=== PATIENT | female | born 1955 | race Caucasian/White ===

== ENCOUNTER 2021-09-20 13:23 | Inpatient (IN) ==
[2021-09-20] MEDS ORDERED: IOPAMIDOL 100 ML BOTTLE IV ONE (13:24)
[2021-09-20 13:47] LABS: POC Calcium, Ionized 1.03 (1.16-1.32); POC Creatinine 0.7 (0.6-1.2)
--- NOTE | 2021-09-20 14:03 | Cat Scan Report ---
INDICATION: Neuro Deficit/acute stroke COMPARISON: None. TECHNIQUE: Axial noncontrast-enhanced images through the brain. Sagittally and coronally reformatted images. FINDINGS: Examination is somewhat suboptimal due to patient motion Cerebral hemispheres:Negative. No intra-axial abnormality. No intra-axial hematoma. No localized mass effect. There is cerebral atrophy with enlarged ventricles and superficial subarachnoid spaces. There is white matter abnormality consistent with periventricular small vessel ischemic change. No acute or focal intra-axial abnormality. Brainstem and cerebellum:There is cerebellar atrophy. No intra-axial abnormality. Brainstem appears negative Extra-axial:No acute hemorrhage. No subdural or epidural hematoma. No subarachnoid hemorrhage. Basilar cisterns are normal Calvarial:No calvarial fracture. No lytic lesion Temporal bones are negative. No destructive lesions Soft tissue, orbits, sinuses:Orbits and visualized facial soft tissues and paranasal sinuses are negative IMPRESSION: 1. Cerebral and cerebellar atrophy. Periventricular white matter abnormality consistent with small vessel ischemic change 2. No acute intracranial hemorrhage. 3. No focal intra-axial attenuation abnormality or localized mass effect The exam was performed using radiation dose optimization techniques including, but not limited to, automated exposure control, adjustment of the mA and/or kV according to patient size and use of iterative reconstruction technique. Interpreted and Authenticated by: Cash Cooper 09/20/21
[2021-09-20 14:17] LABS: Basophils # (Auto) 0.04 K/mcL (0.00-0.30); Basophils % (Auto) 0.4 % (0.0-2.0); Eosinophils # (Auto) 0.06 K/mcL (0.00-0.70); Eosinophils % (Auto) 0.6 % (0.0-7.0); Hematocrit 41.2 % (34.1-44.9); Hemoglobin 14.1 g/dL (11.2-15.7); Lymphocytes # (Auto) 2.62 K/mcL (1.50-4.80); Lymphocytes % (Auto) 24.7 % (15.5-49.0); Mean Cell Volume 80.9 fL (80.0-100.0); Mean Corpuscular HGB Conc 34.2 g/dL (31.0-36.0); Mean Platelet Volume 8.8 fL (7.4-10.4); Monocytes # (Auto) 0.77 K/mcL (0.10-0.90); Monocytes % (Auto) 7.3 % (1.0-12.0); Neutrophils % (Auto) 66.6 % (38.0-78.0); Platelet Count 359 K/mcL (140-440); RBC 5.09 M/mcL (3.59-5.38); Red Cell Distribution Width 15.3 % (11.5-14.5); WBC 10.6 K/mcL (4.5-11.0)
--- NOTE | 2021-09-20 14:18 | Emergency Department Note ---
Neuro HPI General Chief Complaint: Stroke Symptoms Stated Complaint: stroke symptoms Time Seen by Provider: 09/20/21 13:36 Source: patient Mode of arrival: ambulatory Limitations: altered mental status History of Present Illness HPI Narrative: 66-year-old female with history of advanced dementia and hypertension presents for acute onset right-sided facial droop that her noticed at around 10 AM this morning. Unknown last normal, but he thinks when she woke up this morning. Patient is not on blood thinners. She is not diabetic. Blood glucose is 157. Speech is disorganized, but states this is her baseline and not new for her. NIH stroke score is difficult to ascertain given her underlying dementia and difficulty participating with the exam, but she does get one-point for right-sided facial droop. EKG shows normal sinus rhythm with a rate of 87 bpm. There are no acute ST abnormalities to suggest ischemia. QTC is prolonged at 494 ms. On Anticoagulants: No Related Data Previous Rx's Medication Instructions Recorded quetiapine 50 mg tablet 100 mg PO BID 30 days #120 tabs 04/06/21 Allergies Allergy/AdvReac Type Severity Reaction Status Date / Time Amoxicillin Allergy Severe facial Verified 09/20/21 18:25 swelling latex [LATEX] Allergy Intermediate RASH Verified 09/20/21 18:25 codeine [CODEINE] Allergy Unknown DIZZY, Verified 09/20/21 18:25 HEART RACING metals AdvReac Intermediate Redness of Uncoded 07/31/21 14:35 Skin Review of Systems ROS ROS Narrative: Narrative: All systems ED: reviewed and negative except as stated. [facility] Narrative Patient History Narrative: Narrative: Medical/Surgical/Family History All Active Problems (Updated 09/20/21 @ 15:31 by Ramya Lujan PA-C) Stroke (Acute) Loose stools (Acute) Constipation (Acute) Hypokalemia (Acute) Hypertension (Chronic) History of tonsillectomy (Chronic) History of colonoscopy (Chronic) History of (Chronic) History of appendectomy (Chronic) Obesity (Chronic) Hypercholesterolemia (Chronic) Medical History (Updated 09/20/21 @ 15:31 by Ramya Lujan PA-C) Abscess of anal and rectal regions Alcohol abuse None since 1994 Allergic rhinitis 09/29/2012 Bunion 12/08/13 - Long Burn Cellulitis Dental abscess Dysphagia Edema Elevated blood-pressure reading without diagnosis of hypertension Foot pain 01/03/14 - Long Hypercholesterolemia Hypertension Hypokalemia Obesity Rash Rectal fistula Sacroiliitis Tobacco abuse Tobacco abuse - smoking Surgical History History of appendectomy History of History of colonoscopy 2006; [place] History of tonsillectomy Family History Unknown Alcohol abuse Father Cardiac arrhythmia Pacemaker Mother Malignant Neoplasm of Thyroid Gland, Onset Age: 48 Social History Smoking Status: Former smoker Alcohol Intake Frequency: does not drink Substance Use: does not use Exam Narrative Narrative: General: Alert not oriented to place or self., nontoxic appearing. Pleasant and conversant. HEENT: PERRL, EOMI, normocephalic. Moist mucous membranes. Normal facies and normal dentition. Chest: Symmetric, no pain to palpation Respiratory: Lungs clear to auscultation bilaterally. No respiratory distress. Unlabored breathing. Heart: Regular rate and rhythm, no murmurs/clicks/rubs. Abdomen: Non-tender, Non distended, normal bowel tones. No organomegaly. Extremities: Warm and well perfused. No edema. DP 2+ bilaterally. No venous stasis. Neuro: No focal deficits. Cranial nerves II-XII grossly normal. There is mild right-sided facial droop notable to the right eyebrow and the mouth. Tongue is midline. She is moving all fours spontaneously. No obvious ataxia, but this is difficult to ascertain as she is unable to participate with the exam due to her underlying dementia. NIH stroke score is estimated at 1. Skin: Warm dry, no rashes or lesions, no cyanosis. Psych: Pleasant mood and affect Heme/Lymph: No abnormal bruising General Limitations: altered mental status Course Course Course Narrative: 66-year-old female presents for strokelike symptoms Reevaluation(s) Reevaluation #1: Code stroke, obtain head CT without contrast and CTA of the head and neck I have spoken with the telestroke physician Dr. Stevenson and he is recommending against thrombolytics at this time given unknown last normal and minor disabling symptoms with underlying severe dementia. Reevaluation #2: CTA of the head and neck shows nonocclusive right internal carotid stenosis 40% common and left common carotid stenosis 50%. No other significant findings. She is noted to have brain atrophy consistent with her underlying dementia. Vital Signs Vital signs: Vital Signs Pulse Rate 105 H 09/20/21 13:33 Respiratory Rate 14 09/20/21 13:33 Blood Pressure 191/63 09/20/21 13:33 Pulse Oximetry (%) 97 09/20/21 13:33 Oxygen Delivery Method 09/20/21 13:33 Temperature 98.2 F 09/20/21 17:11 Pulse Rate 94 H 09/20/21 17:46 Respiratory Rate 23 H 09/20/21 18:42 Blood Pressure 158/91 09/20/21 18:42 Pulse Oximetry (%) 94 09/20/21 17:46 Oxygen Delivery Method 09/20/21 17:11 MDM MDM Narrative Medical decision making narrative: Stroke Telestroke has advised against thrombolytics. Patient will need admission for monitoring and additional work-up as indicated. I have reached out to hospitalist for admission and I am awaiting their call back. Hospitalist has accepted the patient for admission. She is given 81 mg aspirin at his request. Lab Data Result diagrams: 09/20/21 13:35 Labs: Lab Results 09/20/21 09/20/21 09/20/21 Range/Units 13:35 13:35 13:35 WBC 10.6 (4.5-11.0) K/mcL RBC 5.09 (3.59-5.38) M/mcL Hgb 14.1 (11.2-15.7) g/dL Hct 41.2 (34.1-44.9) % POC Hct (36-48) MCV 80.9 (80.0-100.0) fL MCH 27.7 (26.0-34.0) pg MCHC 34.2 (31.0-36.0) g/dL RDW 15.3 H (11.5-14.5) % Plt Count 359 (140-440) K/mcL MPV 8.8 (7.4-10.4) fL Immature Gran % (Auto) 0.4 (0.0-0.5) % Neut % (Auto) 66.6 (38.0-78.0) % Lymph % (Auto) 24.7 (15.5-49.0) % [place] % (Auto) 7.3 (1.0-12.0) % Eos % (Auto) 0.6 (0.0-7.0) % Baso % (Auto) 0.4 (0.0-2.0) % Lymph # (Auto) 2.62 (1.50-4.80) K/mcL [place] # (Auto) 0.77 (0.10-0.90) K/mcL Eos # (Auto) 0.06 (0.00-0.70) K/mcL Baso # (Auto) 0.04 (0.00-0.30) K/mcL Immature Gran # 0.04 (0.00-0.05) K/mcl Absolute Neutrophils 7.06 (1.80-8.00) K/mcL POC PT (11.9-14.5) POC INR (0.8-1.2) APTT 29.6 (20.0-37.0) sec POC Sodium (133-145) POC Potassium (3.3-5.1) POC Chloride (96-108) POC Total CO2 (22-30) POC BUN (6-20) POC Creatinine (0.6-1.2) POC Glucose (70-105) POC WB Ioniz Calcium (1.16-1.32) Total Bilirubin 0.4 (0.1-1.0) mg/dL Direct Bilirubin < 0.2 (0-0.3) mg/dL AST 15 (<32) U/L ALT 12 (<40) U/L Alkaline Phosphatase 122 H (39-117) U/L Total Protein 7.6 (5.9-8.4) gm/dL Albumin 4.0 (3.2-5.2) gm/dL Globulin 3.6 (2.2-3.7) gm/dL Urine Color Urine Appearance (Clear) Urine pH (5.0-9.0) Ur Specific [place] (1.000-1.035) Urine Protein (Negative) mg/dL Urine Glucose (UA) (Negative) mg/dL Urine Ketones (Negative) mg/dL Urine Occult Blood (Negative) yoandy/mcL Urine Nitrate (Negative) Urine Bilirubin (Negative) mg/dL Urine Urobilinogen mg/dL Ur Leukocyte Esterase (Negative) /uL Urine RBC (0-3) /hpf Urine WBC (0-4) /hpf Ur Squamous Epith Cells (0-4) /hpf Urine Bacteria (0) /hpf Urine Mucus (None) /hpf Ur Culture Indicated? POC Troponin I (0.02-0.08) 09/20/21 09/20/21 09/20/21 Range/Units 13:41 13:42 14:44 WBC (4.5-11.0) K/mcL RBC (3.59-5.38) M/mcL Hgb (11.2-15.7) g/dL Hct (34.1-44.9) % POC Hct 43.0 (36-48) MCV (80.0-100.0) fL MCH (26.0-34.0) pg MCHC (31.0-36.0) g/dL RDW (11.5-14.5) % Plt Count (140-440) K/mcL MPV (7.4-10.4) fL Immature Gran % (Auto) (0.0-0.5) % Neut % (Auto) (38.0-78.0) % Lymph % (Auto) (15.5-49.0) % [place] % (Auto) (1.0-12.0) % Eos % (Auto) (0.0-7.0) % Baso % (Auto) (0.0-2.0) % Lymph # (Auto) (1.50-4.80) K/mcL [place] # (Auto) (0.10-0.90) K/mcL Eos # (Auto) (0.00-0.70) K/mcL Baso # (Auto) (0.00-0.30) K/mcL Immature Gran # (0.00-0.05) K/mcl Absolute Neutrophils (1.80-8.00) K/mcL POC PT 13.7 (11.9-14.5) POC INR 1.2 (0.8-1.2) APTT (20.0-37.0) sec POC Sodium 140 (133-145) POC Potassium 3.0 L (3.3-5.1) POC Chloride 100 (96-108) POC Total CO2 29.0 (22-30) POC BUN 5 L (6-20) POC Creatinine 0.7 (0.6-1.2) POC Glucose 183 H (70-105) POC WB Ioniz Calcium 1.03 L (1.16-1.32) Total Bilirubin (0.1-1.0) mg/dL Direct Bilirubin (0-0.3) mg/dL AST (<32) U/L ALT (<40) U/L Alkaline Phosphatase (39-117) U/L Total Protein (5.9-8.4) gm/dL Albumin (3.2-5.2) gm/dL Globulin (2.2-3.7) gm/dL Urine Color Urine Appearance (Clear) Urine pH (5.0-9.0) Ur Specific [place] (1.000-1.035) Urine Protein (Negative) mg/dL Urine Glucose (UA) (Negative) mg/dL Urine Ketones (Negative) mg/dL Urine Occult Blood (Negative) yoandy/mcL Urine Nitrate (Negative) Urine Bilirubin (Negative) mg/dL Urine Urobilinogen mg/dL Ur Leukocyte Esterase (Negative) /uL Urine RBC (0-3) /hpf Urine WBC (0-4) /hpf Ur Squamous Epith Cells (0-4) /hpf Urine Bacteria (0) /hpf Urine Mucus (None) /hpf Ur Culture Indicated? POC Troponin I 0.01 L (0.02-0.08) 09/20/21 Range/Units 15:35 WBC (4.5-11.0) K/mcL RBC (3.59-5.38) M/mcL Hgb (11.2-15.7) g/dL Hct (34.1-44.9) % POC Hct (36-48) MCV (80.0-100.0) fL MCH (26.0-34.0) pg MCHC (31.0-36.0) g/dL RDW (11.5-14.5) % Plt Count (140-440) K/mcL MPV (7.4-10.4) fL Immature Gran % (Auto) (0.0-0.5) % Neut % (Auto) (38.0-78.0) % Lymph % (Auto) (15.5-49.0) % [place] % (Auto) (1.0-12.0) % Eos % (Auto) (0.0-7.0) % Baso % (Auto) (0.0-2.0) % Lymph # (Auto) (1.50-4.80) K/mcL [place] # (Auto) (0.10-0.90) K/mcL Eos # (Auto) (0.00-0.70) K/mcL Baso # (Auto) (0.00-0.30) K/mcL Immature Gran # (0.00-0.05) K/mcl Absolute Neutrophils (1.80-8.00) K/mcL POC PT (11.9-14.5) POC INR (0.8-1.2) APTT (20.0-37.0) sec POC Sodium (133-145) POC Potassium (3.3-5.1) POC Chloride (96-108) POC Total CO2 (22-30) POC BUN (6-20) POC Creatinine (0.6-1.2) POC Glucose (70-105) POC WB Ioniz Calcium (1.16-1.32) Total Bilirubin (0.1-1.0) mg/dL Direct Bilirubin (0-0.3) mg/dL AST (<32) U/L ALT (<40) U/L Alkaline Phosphatase (39-117) U/L Total Protein (5.9-8.4) gm/dL Albumin (3.2-5.2) gm/dL Globulin (2.2-3.7) gm/dL Urine Color Yellow Urine Appearance Clear (Clear) Urine pH 7.0 (5.0-9.0) Ur Specific [place] 1.020 (1.000-1.035) Urine Protein Negative (Negative) mg/dL Urine Glucose (UA) Negative (Negative) mg/dL Urine Ketones Negative (Negative) mg/dL Urine Occult Blood Trace-intact A (Negative) [place]/mcL Urine Nitrate Negative (Negative) Urine Bilirubin Negative (Negative) mg/dL Urine Urobilinogen Normal mg/dL Ur Leukocyte Esterase Trace A (Negative) /uL Urine RBC 3 (0-3) /hpf Urine WBC 9 H (0-4) /hpf Ur Squamous Epith Cells < 1 (0-4) /hpf Urine Bacteria None (0) /hpf Urine Mucus Few A (None) /hpf Ur Culture Indicated? No POC Troponin I (0.02-0.08) Discharge Plan Patient/Caregiver Discharge Instructions Pt seen by [facility]/PA only: Yes Clinical Impression: Stroke Patient Disposition: Xfer As Inpt ([facility]) Discharge Date/Time: 09/20/21 17:00
--- NOTE | 2021-09-20 14:43 | Cat Scan Report ---
INDICATION: stroke symptoms COMPARISON: Previous brain CT scan dated 09/20/2021 TECHNIQUE: Axial images were obtained through the upper chest, neck, and head during arterial phase. MIP and CPR reformatted images. 80ml Isovue 370 injected intravenously. FINDINGS: AORTIC ARCH: Minimal calcified atherosclerotic plaque. Origins of the left subclavian artery, left vertebral artery, left common carotid artery, innominate artery, right common carotid artery, right subclavian artery, right vertebral artery are negative. No origin stenosis. Incidental note is made of a separate origin of the left vertebral artery. This is a normal variant CAROTID ARTERIES:Right: Right common carotid artery is negative. No stenosis or occlusion. Calcified and noncalcified plaque at the origin of the right internal carotid artery. There is stenosis in the proximal right internal carotid artery. This measures approximately 40% diameter stenosis. No evidence for ulceration. Right internal carotid artery is otherwise negative. No stenosis or occlusion. No fibromuscular dysplasia or dissection. Left: Left common carotid artery is negative. No stenosis or occlusion There is noncalcified plaque in the distal left common carotid artery. There is 50% diameter stenosis. No evidence for ulceration. Proximal left internal carotid artery is negative. No stenosis or ulceration VERTEBRAL ARTERIES: Both vertebral arteries are small caliber vessels. Vertebral arteries are patent without stenosis or occlusion [place]:[Cavernous and supraclinoid internal carotid arteries are negative. No significant stenosis or occlusion. M1 segments of the middle cerebral arteries and A1 segments of the anterior cerebral arteries are negative. Intracranial vertebral arteries and basilar artery are negative. Posterior cerebral arteries and superior cerebellar arteries are negative] INTRACRANIAL CIRCULATION:No intracranial branch occlusion. No arteriovenous malformation or aneurysm No dural sinus occlusion UPPER CHEST:No pulmonary parenchymal mass or focal infiltrate. Superior mediastinum is negative NECK:No solid or cystic soft tissue mass. No pathologic lymphadenopathy. BRAIN:No acute intracranial hemorrhage. No focal attenuation abnormalities or pathologic contrast enhancement. IMPRESSION: 1. No intracranial branch occlusion 2. Calcified and noncalcified plaque at the origin of the right internal carotid artery. 40% diameter stenosis 3. Noncalcified plaque in the left common carotid artery. Estimated 50% diameter stenosis The exam was performed using radiation dose optimization techniques including, but not limited to, automated exposure control, adjustment of the mA and/or kV according to patient size and use of iterative reconstruction technique. Interpreted and Authenticated by: Cash Cooper 09/20/21
[2021-09-20 14:51] LABS: POC INR 1.2 (0.8-1.2); POC Pro Time 13.7 (11.9-14.5)
[2021-09-20 14:53] LABS: ALT/SGPT 12 U/L (<40); AST/SGOT 15 U/L (<32); Alkaline Phosphatase 122 U/L (39-117); Bilirubin,Direct < 0.2 mg/dL (0-0.3); Bilirubin,Total 0.4 mg/dL (0.1-1.0); Globulin 3.6 gm/dL (2.2-3.7)
[2021-09-20] MEDS ORDERED: ASPIRIN 81 MG TAB.CHEW CHEWED ONE ×3 (16:01→16:16)
--- NOTE | 2021-09-20 16:27 | Internal Med History&Physical ---
HPI History of Present Illness Patient information: Note initiated : 09/20/21 at 4:19 pm Service Date, if different from initiated Date: [] Patient: Kamla Will 66 y/o F admitted on for stroke symptoms. Chief Complaint: [] History of present illness: Ms. Will is a 66 year old F With a history of borderline diabetes hypertension obesity and psychiatric illness not otherwise specified. History is obtained from as patient cannot give accurate history. Per the she has significant facial droop on the right side today as a few minutes ago when I visited with the patient and the he says it has improved some. Telestroke was contacted who recommended aspirin stroke work-up including MRI, permissive hypertension, etc. is also having difficult time taking care of and needs assistance and we may need to look in to placement options. Per the over the past 5+ years she has had significant cognitive impairment and has gotten worse in the past year or so. Labs were essentially unremarkable except for potassium that was 3.0. EKG shows sinus rhythm. She was hypertensive at 191/63. Hold blood pressure trends show she is always mildly hypertensive but not quite this high. She does take a combination of triamterene hydrochlorothiazide for blood pressure. Patient denies numbness or tingling in arms or legs. Review of Systems: Pertinent positives as above. Denies headache/fever/chills/nause a/vomiting/chest or abdominal pain/cough/dyspnea/diarrhea. Remaining 10 point review of system reviewed negative PFSH PFSH All Active Problems (Updated 09/20/21 @ 15:31 by Ramya uLjan PA-C) Stroke (Acute) Loose stools (Acute) Constipation (Acute) Hypokalemia (Acute) Hypertension (Chronic) History of tonsillectomy (Chronic) History of colonoscopy (Chronic) History of (Chronic) History of appendectomy (Chronic) Obesity (Chronic) Hypercholesterolemia (Chronic) Medical History (Updated 09/20/21 @ 15:31 by Ramya Lujan PA-C) Abscess of anal and rectal regions Alcohol abuse None since 1994 Allergic rhinitis 09/29/2012 Bunion 12/08/13 - Long Burn Cellulitis Dental abscess Dysphagia Edema Elevated blood-pressure reading without diagnosis of hypertension Foot pain 01/03/14 - Long Hypercholesterolemia Hypertension Hypokalemia Obesity Rash Rectal fistula Sacroiliitis Tobacco abuse Tobacco abuse - smoking Surgical History History of appendectomy History of History of colonoscopy 2006; [facility] History of tonsillectomy Family History Unknown Alcohol abuse Father Cardiac arrhythmia Pacemaker Mother Malignant Neoplasm of Thyroid Gland, Onset Age: 48 Social History household members: spouse housing: house lives independently: Yes marital status: education level: vocational service: No occupational status: retired occupation: HVAC, ranching, homemaker eating out: rarely or never physical activity: walking smoking status: Former smoker quit date: 03/11/16 alcohol intake frequency: does not drink substance use type: does not use belen/mormon: None seatbelt use: always additional history: Nicotine Free Vape MEDS/ALLERGIES Home Medications and Allergies Home Medications Medication Instructions Recorded Confirmed Type potassium chloride 20 mEq 20 meq PO DAILY #90 tabs 07/23/19 07/31/21 Rx tablet,extended release(part/cryst) triamterene 37.5 2 tab PO QDAY 90 days #180 tabs 07/23/19 07/31/21 Rx mg-hydrochlorothiazide 25 mg tablet polyethylene glycol 3350 17 17 g PO QDAY 01/05/20 07/31/21 History gram/dose oral powder (Miralax) quetiapine 50 mg tablet 100 mg PO BID 30 days #120 tabs 04/06/21 07/31/21 Rx Allergies Allergy/AdvReac Type Severity Reaction Status Date / Time Amoxicillin Allergy Severe facial Verified 07/31/21 14:35 swelling latex [LATEX] Allergy Intermediate RASH Verified 07/31/21 14:35 codeine [CODEINE] Allergy Unknown DIZZY, Verified 07/31/21 14:35 HEART RACING metals AdvReac Intermediate Redness of Uncoded 07/31/21 14:35 Skin EXAM Constitutional Vitals: Pulse Resp BP Pulse Ox O2 Del Method 81 14 159/75 97 09/20/21 15:42 09/20/21 13:33 09/20/21 15:42 09/20/21 15:42 09/20/21 13:33 Exam: G eneral: Alert, Awake, No acute Distress Eyes/N/T: EOMI, PERRL, MM Head/Neck: neck supple, normocephalic atraumatic CV: RRR, No murmurs, normal s1/s2 Pulm: Clear b/l, no wheezing/rhonchi/rales Abd: soft, nontender, +BS x4 Ext: no clubbing/cyanosis/edema Neuro: Alert, mild right facial dropp, moves all extremities, follows some commands but difficult to examine since she is hard to direct. She exhibits severe thought disorganization and seemed to have some delusions Skin: warm/dry DATA Data Completed and Pending Labs: Labs from last 24 hours 09/20/21 09/20/21 09/20/21 15:35 14:44 13:42 WBC RBC Hgb Hct POC Hct 43.0 MCV MCH MCHC RDW Plt Count MPV Immature Gran % (Auto) Neut % (Auto) Lymph % (Auto) [place] % (Auto) Eos % (Auto) Baso % (Auto) Lymph # (Auto) [place] # (Auto) Eos # (Auto) Baso # (Auto) Immature Gran # Absolute Neutrophils POC PT 13.7 POC INR 1.2 APTT POC Sodium 140 POC Potassium 3.0 L POC Chloride 100 POC Total CO2 29.0 POC BUN 5 L POC Creatinine 0.7 POC Glucose 183 H POC WB Ioniz Calcium 1.03 L Total Bilirubin Direct Bilirubin AST ALT Alkaline Phosphatase Total Protein Albumin Globulin Urine Color Pending Urine Appearance Pending Urine pH Pending Ur Specific [place] Pending Urine Protein Pending Urine Glucose (UA) Pending Urine Ketones Pending Urine Occult Blood Pending Urine Nitrate Pending Urine Bilirubin Pending Urine Urobilinogen Pending Ur Leukocyte Esterase Pending POC Troponin I 09/20/21 09/20/21 09/20/21 13:41 13:35 13:35 WBC RBC Hgb Hct POC Hct MCV MCH MCHC RDW Plt Count MPV Immature Gran % (Auto) Neut % (Auto) Lymph % (Auto) [place] % (Auto) Eos % (Auto) Baso % (Auto) Lymph # (Auto) [place] # (Auto) Eos # (Auto) Baso # (Auto) Immature Gran # Absolute Neutrophils POC PT POC INR APTT 29.6 POC Sodium POC Potassium POC Chloride POC Total CO2 POC BUN POC Creatinine POC Glucose POC WB Ioniz Calcium Total Bilirubin 0.4 Direct Bilirubin < 0.2 AST 15 ALT 12 Alkaline Phosphatase 122 H Total Protein 7.6 Albumin 4.0 Globulin 3.6 Urine Color Urine Appearance Urine pH Ur Specific [place] Urine Protein Urine Glucose (UA) Urine Ketones Urine Occult Blood Urine Nitrate Urine Bilirubin Urine Urobilinogen Ur Leukocyte Esterase POC Troponin I 0.01 L 09/20/21 13:35 WBC 10.6 RBC 5.09 Hgb 14.1 Hct 41.2 POC Hct MCV 80.9 MCH 27.7 MCHC 34.2 RDW 15.3 H Plt Count 359 MPV 8.8 Immature Gran % (Auto) 0.4 Neut % (Auto) 66.6 Lymph % (Auto) 24.7 [place] % (Auto) 7.3 Eos % (Auto) 0.6 Baso % (Auto) 0.4 Lymph # (Auto) 2.62 [place] # (Auto) 0.77 Eos # (Auto) 0.06 Baso # (Auto) 0.04 Immature Gran # 0.04 Absolute Neutrophils 7.06 POC PT POC INR APTT POC Sodium POC Potassium POC Chloride POC Total CO2 POC BUN POC Creatinine POC Glucose POC WB Ioniz Calcium Total Bilirubin Direct Bilirubin AST ALT Alkaline Phosphatase Total Protein Albumin Globulin Urine Color Urine Appearance Urine pH Ur Specific [place] Urine Protein Urine Glucose (UA) Urine Ketones Urine Occult Blood Urine Nitrate Urine Bilirubin Urine Urobilinogen Ur Leukocyte Esterase POC Troponin I A/P Narrative A/P Narrative: A: *Right facial droop, stroke-like symptoms: -ABCD=4-5 -CTA head neck unremarkable *Psychosis NOS, but likely Schizophrenia based on presentation: -has not seen neuro or psychiatry because the has a hard time getting her to any appointments *Hypokalemia: *HTN: *Obesity: BMI 39 *DM: not on meds, last A1c 6.5 in 2020 P: -IVF -Permissive hypertension 24-48hrs -asa/statin -MRI/Echo -A1c -Delirium precautions, cont home seroquel -Monitor and replace electrolytes - -CM for placement needs -ppx: Lovenox Time Spent With Patient Time: Total time spent is greater than 50% in coordination of care (as documented) at patient's floor/unit and/or counseling patient: Total time spent with greater than 50% in coordination of care (as documented) at patient's floor/unit and/or counseling patient:: 50 - 70 minutes QUALITY Stroke Symptom Onset Unknown: No
[2021-09-20 16:29] LABS: Appearance,Urine Clear (Clear); Bilirubin,Urine Negative (Negative); Color,Urine Yellow; Culture Indicated,Urine No; Glucose,Urine (UA) Negative (Negative); Ketones,Urine Negative (Negative); Leukocyte Esterase,Urine Trace /uL (Negative); Mucus,Urine FEW /hpf; Nitrate,Urine Negative (Negative); Protein,Urine Negative (Negative); Urine Blood Trace-intact ery/mcL (Negative); Urine RBC 3 /hpf (0-3); Urine Squamous Epithelial Cell < 1 /hpf (0-4); Urine WBC 9 /hpf (0-4); Urobilinogen,Urine Normal
[2021-09-20] MEDS ORDERED: MAGNESIUM SULFATE 2 GM/50 ML BAG IV PRN (17:12)
[2021-09-20] MEDS ORDERED: DEXTROSE 31 GM ORAL.SUSP PO PRN (17:12)
[2021-09-20] MEDS ORDERED: POTASSIUM CHLORIDE 40 MEQ in DEXTROSE 5% IN WATER 500 ML IV PRN (17:12)
[2021-09-20] MEDS ORDERED: POTASSIUM CHLORIDE 20 MEQ TABLET PO PRN (17:12)
[2021-09-20] MEDS ORDERED: LABETALOL 5 MG/ML ML IV PRN ×2 (17:12→18:00)
[2021-09-20] MEDS ORDERED: 0.9 % SODIUM CHLORIDE 1,000 ML IV SCH (17:12)
[2021-09-20] MEDS ORDERED: POTASSIUM CHLORIDE 20 MEQ TABLET PO ONE (17:12)
[2021-09-20] MEDS ORDERED: ONDANSETRON 4 MG/2 ML VIAL IV PRN (17:12)
[2021-09-20] MEDS ORDERED: DEXTROSE 50% 50 ML VIAL IV PRN (17:12)
[2021-09-20] MEDS ORDERED: SENNOSIDES 1 TABLET PO PRN (17:12)
[2021-09-20] MEDS ORDERED: IPRATROPIUM/ALBUTEROL 3 ML AMPUL.NEB NEB PRN (17:12)
[2021-09-20] MEDS ORDERED: LORazepam 2 MG/ML VIAL IV ONE (17:38)
[2021-09-20] MEDS ORDERED: diphenhydrAMINE 50 MG/ML VIAL IV ONE (17:39)
[2021-09-20] MEDS ORDERED: LORazepam 2 MG/ML VIAL IV PRN (17:41)
[2021-09-20] MEDS: INSULIN LISPRO 1 UNIT/0.01 ML UNIT SQ SCH ×2 (19:04→21:10)
[2021-09-20] MEDS: QUEtiapine 100 MG TABLET PO SCH (20:04)
[2021-09-20] MEDS: ATORVASTATIN 40 MG TABLET PO SCH (20:04)
[2021-09-20] MEDS: DOCUSATE SODIUM 100 MG CAPSULE PO SCH (20:04)
[2021-09-20] MEDS: LORazepam 2 MG/ML VIAL IV PRN ×2 (20:07→23:57)
[2021-09-20] MEDS ORDERED: LORazepam 2 MG/ML VIAL ONE (20:15)
[2021-09-20] MEDS: HALOPERIDOL LACTATE 5 MG/ML VIAL IV PRN (21:09)
[2021-09-20] MEDS: diphenhydrAMINE 50 MG/ML VIAL IV PRN (21:09)
[2021-09-20] MEDS: 0.9 % SODIUM CHLORIDE 10 ML SYRINGE IV SCH (21:10)
[2021-09-21] MEDS: HALOPERIDOL LACTATE 5 MG/ML VIAL IV PRN ×2 (01:57→13:00)
[2021-09-21] MEDS: diphenhydrAMINE 50 MG/ML VIAL IV PRN ×2 (01:57→13:00)
[2021-09-21] MEDS: 0.9 % SODIUM CHLORIDE 10 ML SYRINGE IV SCH ×3 (06:17→21:30)
[2021-09-21 06:45] LABS: Hemoglobin A1C 6.9 % Hgb (4.0-6.0)
[2021-09-21 06:59] LABS: ALT/SGPT 11 U/L (<40); AST/SGOT 18 U/L (<32); Albumin 3.6 gm/dL (3.2-5.2); Albumin/Globulin Ratio 1.1 (1.0-2.3); Alkaline Phosphatase 116 U/L (39-117); Bilirubin,Direct < 0.2 mg/dL (0-0.3); Bilirubin,Total 0.8 mg/dL (0.1-1.0); Blood Urea Nitrogen 5 mg/dL (8-23); Calcium 8.7 mg/dL (8.6-10.4); Carbon Dioxide 27 mmol/L (22-30); Chloride 102 mmol/L (96-108); Globulin 3.3 gm/dL (2.2-3.7); Glomerular Filtration Rate 95; Glucose 120 mg/dL (70-105); Lactate Dehydrogenase 227 U/L (135-225); Phosphorous 2.9 mg/dL (2.5-4.5); Triglycerides 112 mg/dL (<150); Uric Acid 5.8 mg/dL (2.5-8.0)
[2021-09-21] MEDS: INSULIN LISPRO 1 UNIT/0.01 ML UNIT SQ SCH ×4 (07:30→20:46)
[2021-09-21] MEDS: DOCUSATE SODIUM 100 MG CAPSULE PO SCH ×2 (08:26→20:44)
[2021-09-21] MEDS: ASPIRIN 81 MG TAB.CHEW CHEWED SCH (08:26)
[2021-09-21] MEDS: ENOXAPARIN 40 MG/0.4 ML SYRINGE SQ SCH (08:26)
[2021-09-21] MEDS: QUEtiapine 100 MG TABLET PO SCH ×2 (08:26→20:45)
[2021-09-21] MEDS: POTASSIUM CHLORIDE 20 MEQ TABLET PO PRN (08:28)
--- NOTE | 2021-09-21 08:33 | Internal Med Progress Note ---
SUBJECTIVE Subjective Patient information: Note initiated : 09/21/21 at 8:30 am Service Date, if different from initiated Date: [] Patient: Kamla Will 66 y/o F admitted on 09/20/21 for stroke symptoms. Chief Complaint: [] Interval history: History of present illness: Ms. Will is a 66 year old F With a history of borderline diabetes hypertension obesity and psychiatric illness not otherwise specified. History is obtained from as patient cannot give accurate history. Per the she has significant facial droop on the right side today as a few minutes ago when I visited with the patient and the he says it has improved some. Telestroke was contacted who recommended aspirin stroke work-up including MRI, permissive hypertension, etc. is also having difficult time taking care of and needs assistance and we may need to look in to placement options. Per the over the past 5+ years she has had significant cognitive impairment and has gotten worse in the past year or so. Labs were essentially unremarkable except for potassium that was 3.0. EKG shows sinus rhythm. She was hypertensive at 191/63. Hold blood pressure trends show she is always mildly hypertensive but not quite this high. She does take a combination of triamterene hydrochlorothiazide for blood pressure. Patient denies numbness or tingling in arms or legs. 09/21 Patient was agitated at night was given multiple medications which did have some temporary effect. Unable to get MRI yesterday because of her impulsive nature and difficulty in directing. Of telepsych consult today. Review of Systems: Unable to accurately obtain given patient's disorganized thought tangential speech. Constitutional Vitals: Vital Signs Temp Pulse Resp BP Pulse Ox O2 Del Method 98.2 F 88 16 173/98 96 09/21/21 08:03 09/21/21 08:15 09/21/21 08:15 09/21/21 08:03 09/21/21 08:15 09/20/21 20:00 Period Temp Pulse Resp BP Sys/Caraballo Pulse Ox O2 Del Method O2 Flow Rate Last 24 Hr 97.7 F-98.2 F 76-105 14-26 143-191/63-148 94-100 Room Air-Room Air Intake and Output 09/20/21 09/21/21 09/21/21 21:59 05:59 13:59 Intake Total 44 956 120 Output Total 752 Balance 44 204 120 Weight 109.996 kg Intake & Output: Intake & Output 09/20/21 09/21/21 09/21/21 21:59 05:59 13:59 Intake Total 44 956 120 Output Total 752 Balance 44 204 120 Weight 109.996 kg Intake: IV 44 956 Sodium Chloride 0.9% 1,000 ml @ 44 956 125 mls/hr IV .Q8H [facility] Rx#: [id number] Oral 120 Output: Urine Catheter Amount 750 Straight 750 # of times incontinent of urine 2 Other: Meal Dinner Percent of Meal Consumed Refused 75% Feeding Ability Total Assistance Total Assistance Urine Appearance Straight Clear Urine Color Straight Light Barbara Stool Size Small Stool Color Brown Stool Consistency Soft # of times incontinent of 2 1 Bowels Exam: General: Alert, Awake, No acute Distress Eyes/N/T: EOMI, Head/Neck: neck supple, CV: RRR, No murmurs, Pulm: Clear b/l, no wheezing/rhonchi/rales Abd: soft, nontender, +BS x4 Ext: no clubbing/cyanosis/edema Neuro: Alert, no facial droop, moves all extremities spontaneously, difficult to direct. She exhibits severe thought disorganization, hallucinations, and seemed to have some delusions, Skin: warm/dry OBJ DATA Labs CBC & Chem 7: 09/20/21 13:35 09/21/21 05:24 Labs: Abnormal Lab Results 09/21/21 09/20/21 09/20/21 05:24 15:35 13:42 RDW POC Potassium 3.0 L Potassium 3.2 L POC BUN 5 L BUN 5 L Glucose 120 H POC Glucose 183 H Hemoglobin A1c POC WB Ioniz Calcium 1.03 L Alkaline Phosphatase Lactate Dehydrogenase 227 H Urine Occult Blood Trace-intact A Ur Leukocyte Esterase Trace A Urine WBC 9 H Urine Mucus Few A POC Troponin I 09/20/21 09/20/21 09/20/21 13:41 13:35 13:35 RDW POC Potassium Potassium POC BUN BUN Glucose POC Glucose Hemoglobin A1c 6.9 H POC WB Ioniz Calcium Alkaline Phosphatase 122 H Lactate Dehydrogenase Urine Occult Blood Ur Leukocyte Esterase Urine WBC Urine Mucus POC Troponin I 0.01 L 09/20/21 13:35 RDW 15.3 H POC Potassium Potassium POC BUN BUN Glucose POC Glucose Hemoglobin A1c POC WB Ioniz Calcium Alkaline Phosphatase Lactate Dehydrogenase Urine Occult Blood Ur Leukocyte Esterase Urine WBC Urine Mucus POC Troponin I Meds: Medications Acetaminophen (Acetaminophen 325 Mg Tablet) 650 mg PO Q6HP PRN; Protocol PRN Reason: Per Pain Protocol/Fever > 101 Albuterol/Ipratropium (Ipratropium/Albuterol 3 Ml Ampul.Neb) 3 ml NEB Q4HP PRN PRN Reason: Shortness Of Breath Aspirin (Aspirin 81 Mg Tab.Chew) 81 mg CHEWED DAILY [facility] Last Admin: 09/21/21 08:26 Dose: 81 mg Atorvastatin Calcium (Atorvastatin 40 Mg Tablet) 80 mg PO HS [facility] Last Admin: 09/20/21 20:04 Dose: 80 mg Dextrose (Dextrose 50% 50 Ml Vial) 0 ml IV UD PRN PRN Reason: Per Sliding Scale Diagnostic Test (Pha) (Accu-Chek 1 Each Strip) 1 each FS ACHS [facility] Last Admin: 09/21/21 07:30 Dose: 1 each Diphenhydramine HCl (Diphenhydramine 50 Mg/Ml Vial) 25 mg IV Q4-6HP PRN PRN Reason: Anxiety Last Admin: 09/21/21 01:57 Dose: 25 mg Docusate Sodium (Docusate Sodium 100 Mg Capsule) 100 mg PO BID [facility] Last Admin: 09/21/21 08:26 Dose: 100 mg Enoxaparin Sodium (Enoxaparin 40 Mg/0.4 Ml Syringe) 40 mg SQ DAILY [facility] Last Admin: 09/21/21 08:26 Dose: 40 mg Glucose (Dextrose 31 Gm Oral.Susp) 15 gm PO PRN PRN PRN Reason: Hypoglycemia Haloperidol Lactate (Haloperidol Lactate 5 Mg/Ml Vial) 5 mg IV Q4HP PRN PRN Reason: ANXIETY/SEDATION Last Admin: 09/21/21 01:57 Dose: 5 mg Potassium Chloride 40 meq/ (Dextrose) 520 mls @ 130 mls/hr IV UD PRN PRN Reason: Potassium < 3 Magnesium Sulfate (Magnesium Sulfate) 2 gm in 50 mls @ 50 mls/hr IV UD PRN PRN Reason: Magnesium </= 1.6 Insulin Human Lispro (Insulin Lispro 1 Unit/0.01 Ml Unit) 0 unit SQ ACHS [facility]; Protocol Last Admin: 09/21/21 07:30 Dose: Not Given Labetalol HCl (Labetalol 5 Mg/Ml Ml) 10 mg IV Q2HP PRN PRN Reason: Hypertension Lorazepam (Lorazepam 2 Mg/Ml Vial) 1 - 2 mg IV Q4HP PRN PRN Reason: Agitation Last Admin: 09/20/21 23:57 Dose: 1 mg Ondansetron HCl (Ondansetron 4 Mg/2 Ml Vial) 4 mg IV Q4HP PRN PRN Reason: Nausea And Vomiting Polyethylene Glycol (Polyethylene Glycol 3350 17 Gm Packet) 17 gm PO DAILYP PRN PRN Reason: Constipation Potassium Chloride (Potassium Chloride 20 Meq Tablet) 40 meq PO UD PRN PRN Reason: Potssium is 3-3.5 Last Admin: 09/21/21 08:28 Dose: 40 meq Potassium Chloride (Potassium Chloride 20 Meq Tablet) 40 meq PO UD PRN PRN Reason: Potassium < 3 Quetiapine Fumarate (Quetiapine 100 Mg Tablet) 100 mg PO BID [facility] Last Admin: 09/21/21 08:26 Dose: 100 mg Senna (Sennosides 1 Tablet) 2 tab PO DAILYP PRN PRN Reason: Constipation Sodium Chloride (0.9 % Sodium Chloride 10 Ml Syringe) 10 ml IV Q8 [facility] Last Admin: 09/21/21 06:17 Dose: 10 ml A/P Narrative A/P Narrative: A: *Right facial droop, stroke-like symptoms: -ABCD=4-5 -CTA head neck unremarkable *Psychosis NOS, but likely Schizophrenia based on presentation: -has not seen neuro or psychiatry because the has a hard time getting her to any appointments *Hypokalemia: *HTN: *Obesity: BMI 39 *DM: not on meds, A1c 6.9 P: -s/p IVF -Permissive hypertension 24-48hrs -asa/statin -MRI/Echo -Delirium precautions, cont home seroquel -telepsych consult -Monitor and replace electrolytes -CM for placement needs -ppx: Lovenox Time Spent With Patient Time: Total time spent is greater than 50% in coordination of care (as documented) at patient's floor/unit and/or counseling patient: Total time spent with greater than 50% in coordination of care (as documented) at patient's floor/unit and/or counseling patient:: 25 - 35 minutes QUALITY Stroke Onset of Symptoms Date: 09/20/21 Onset of Symptoms Time: 10:30 Symptom Onset Unknown: Yes VTE Deep Vein Thrombosis/Pulmonary Embolism Present on Admission: No
[2021-09-21] MEDS: LORazepam 2 MG/ML VIAL IV PRN ×2 (13:59→14:42)
[2021-09-21] MEDS: ATORVASTATIN 40 MG TABLET PO SCH (20:44)
[2021-09-22] MEDS: 0.9 % SODIUM CHLORIDE 10 ML SYRINGE IV SCH ×3 (05:52→21:47)
[2021-09-22 07:20] LABS: ALT/SGPT 10 U/L (<40); AST/SGOT 14 U/L (<32); Albumin 3.3 gm/dL (3.2-5.2); Alkaline Phosphatase 107 U/L (39-117); Bilirubin,Direct < 0.2 mg/dL (0-0.3); Bilirubin,Total 0.5 mg/dL (0.1-1.0); Blood Urea Nitrogen 7 mg/dL (8-23); Calcium 8.5 mg/dL (8.6-10.4); Carbon Dioxide 25 mmol/L (22-30); Chloride 103 mmol/L (96-108); Globulin 3.3 gm/dL (2.2-3.7); Glomerular Filtration Rate 95; Glucose 99 mg/dL (70-105); Lactate Dehydrogenase 203 U/L (135-225); Phosphorous 3.3 mg/dL (2.5-4.5); Triglycerides 105 mg/dL (<150); Uric Acid 5.3 mg/dL (2.5-8.0)
--- NOTE | 2021-09-22 08:13 | Cat Scan Report ---
INDICATION: f/u stroke symptoms, unable to do MRI COMPARISON: Previous brain CT scan dated 09/20/2021 TECHNIQUE: Axial noncontrast-enhanced images through the brain. Sagittally and coronally reformatted images. FINDINGS: Suboptimal evaluation due to patient motion Cerebral hemispheres:No acute intra-axial hemorrhage. No focal intra-axial attenuation abnormalities or localized mass effect. No midline shift. There may be a 6 mm right basal ganglion lacunar infarction. This is not acute and is not a definite abnormality. There is cerebral atrophy with prominent superficial subarachnoid spaces and ventricles. There is white matter abnormality which is advanced for age. This is predominantly periventricular and consistent with small vessel ischemic change. Brainstem and cerebellum:There is cerebellar atrophy. There is a 7 mm nonacute left cerebellar infarction. This is better demonstrated on previous examination due to extensive motion induced artifact on prior study. This is not acute Brainstem is negative. Extra-axial:No acute hemorrhage. No subdural or epidural hematoma. No subarachnoid hemorrhage. Basilar cisterns are normal Calvarial:No calvarial fracture. No lytic lesion Temporal bones are negative. No destructive lesions Soft tissue, orbits, sinuses:Orbits and visualized facial soft tissues and paranasal sinuses are negative IMPRESSION: 1. No acute intracranial hemorrhage 2. Cerebral and cerebellar atrophy. White matter abnormality consistent with small vessel ischemic change 3. No acute abnormality. No interval change since 09/20/2021 The exam was performed using radiation dose optimization techniques including, but not limited to, automated exposure control, adjustment of the mA and/or kV according to patient size and use of iterative reconstruction technique. Interpreted and Authenticated by: Cash Cooper 09/22/21
[2021-09-22] MEDS: INSULIN LISPRO 1 UNIT/0.01 ML UNIT SQ SCH ×4 (08:15→20:14)
[2021-09-22] MEDS ORDERED: LABETALOL 5 MG/ML ML IV PRN (08:29)
--- NOTE | 2021-09-22 08:31 | Internal Med Progress Note ---
SUBJECTIVE Subjective Patient information: Note initiated : 09/22/21 at 8:27 am Service Date, if different from initiated Date: [] Patient: Kamla Will 66 y/o F admitted on 09/20/21 for stroke symptoms. Chief Complaint: [] Interval history: History of present illness: Ms. Will is a 66 year old F With a history of borderline diabetes hypertension obesity and psychiatric illness not otherwise specified. History is obtained from as patient cannot give accurate history. Per the she has significant facial droop on the right side today as a few minutes ago when I visited with the patient and the he says it has improved some. Telestroke was contacted who recommended aspirin stroke work-up including MRI, permissive hypertension, etc. is also having difficult time taking care of and needs assistance and we may need to look in to placement options. Per the over the past 5+ years she has had significant cognitive impairment and has gotten worse in the past year or so. Labs were essentially unremarkable except for potassium that was 3.0. EKG shows sinus rhythm. She was hypertensive at 191/63. Hold blood pressure trends show she is always mildly hypertensive but not quite this high. She does take a combination of triamterene hydrochlorothiazide for blood pressure. Patient denies numbness or tingling in arms or legs. 09/21 Patient was agitated at night was given multiple medications which did have some temporary effect. Unable to get MRI yesterday because of her impulsive nature and difficulty in directing. Of telepsych consult today. 09/22 No overnight event or new complaints. Patient today is answering my questions a little bit more clearly. Awaiting psychiatry consult. Review of Systems: Unable to accurately obtain given patient's disorganized thoughtc tangential speech. Constitutional Vitals: Vital Signs Temp Pulse Resp BP Pulse Ox O2 Del Method 97.5 F 89 17 158/82 98 09/22/21 08:01 09/22/21 08:01 09/22/21 08:01 09/22/21 08:01 09/22/21 08:01 09/21/21 20:00 Period Temp Pulse Resp BP Sys/Caraballo Pulse Ox O2 Del Method O2 Flow Rate Last 24 Hr 97.2 F-98.7 F 86-102 14-25 148-173/80-134 96-98 Room Air Intake and Output 0809/22/21 09/22/21 21:59 05:59 13:59 Intake Total 200 Output Total 400 550 Balance -200 -550 Weight 110.087 kg Intake & Output: Intake & Output 09/21/21 09/22/21 09/22/21 21:59 05:59 13:59 Intake Total 200 Output Total 400 550 Balance -200 -550 Weight 110.087 kg Intake: Oral 200 Output: Urine Catheter Amount 400 550 Uretheral ([place]) 400 Other: Meal snack Percent of Meal Consumed 50% Feeding Ability Total Assistance Urine Appearance Cloudy Uretheral ([place]) Cloudy Sediment Urine Color Light Barbara Uretheral ([place]) Light Barbara Stool Size Small Moderate Stool Color Brown Brown Stool Consistency Soft Formed # Bowel Movements 1 # of times incontinent of 1 1 Bowels Exam: General: Alert, Awake, No acute Distress Eyes/N/T: EOMI, Head/Neck: neck supple, CV: RRR, No murmurs, Pulm: Clear b/l, no wheezing/rhonchi/rales Abd: soft, nontender, +BS x4 Ext: no clubbing/cyanosis/edema Neuro: Alert, no facial droop, moves all extremities spontaneously, difficult to direct. She exhibits severe thought disorganization, hallucinations, and seemed to have some delusions, Skin: warm/dry OBJ DATA Labs CBC & Chem 7: 09/20/21 13:35 09/22/21 05:36 Labs: Abnormal Lab Results 09/22/21 09/21/21 09/20/21 05:36 05:24 15:35 RDW POC Potassium Potassium 3.2 L POC BUN BUN 7 L 5 L Glucose 120 H POC Glucose Hemoglobin A1c Calcium 8.5 L POC WB Ioniz Calcium Alkaline Phosphatase Lactate Dehydrogenase 227 H Urine Occult Blood Trace-intact A Ur Leukocyte Esterase Trace A Urine WBC 9 H Urine Mucus Few A POC Troponin I 09/20/21 09/20/21 09/20/21 13:42 13:41 13:35 RDW POC Potassium 3.0 L Potassium POC BUN 5 L BUN Glucose POC Glucose 183 H Hemoglobin A1c 6.9 H Calcium POC WB Ioniz Calcium 1.03 L Alkaline Phosphatase Lactate Dehydrogenase Urine Occult Blood Ur Leukocyte Esterase Urine WBC Urine Mucus POC Troponin I 0.01 L 09/20/21 09/20/21 13:35 13:35 RDW 15.3 H POC Potassium Potassium POC BUN BUN Glucose POC Glucose Hemoglobin A1c Calcium POC WB Ioniz Calcium Alkaline Phosphatase 122 H Lactate Dehydrogenase Urine Occult Blood Ur Leukocyte Esterase Urine WBC Urine Mucus POC Troponin I Meds: Medications Acetaminophen (Acetaminophen 325 Mg Tablet) 650 mg PO Q6HP PRN; Protocol PRN Reason: Per Pain Protocol/Fever > 101 Albuterol/Ipratropium (Ipratropium/Albuterol 3 Ml Ampul.Neb) 3 ml NEB Q4HP PRN PRN Reason: Shortness Of Breath Aspirin (Aspirin 81 Mg Tab.Chew) 81 mg CHEWED DAILY [facility] Last Admin: 09/21/21 08:26 Dose: 81 mg Atorvastatin Calcium (Atorvastatin 40 Mg Tablet) 80 mg PO HS [facility] Last Admin: 09/21/21 20:44 Dose: 80 mg Dextrose (Dextrose 50% 50 Ml Vial) 0 ml IV UD PRN PRN Reason: Per Sliding Scale Diagnostic Test (Pha) (Accu-Chek 1 Each Strip) 1 each FS BIDAC [facility] Last Admin: 09/22/21 08:13 Dose: 1 each Diphenhydramine HCl (Diphenhydramine 50 Mg/Ml Vial) 25 mg IV Q4-6HP PRN PRN Reason: Anxiety Last Admin: 09/21/21 13:00 Dose: 25 mg Docusate Sodium (Docusate Sodium 100 Mg Capsule) 100 mg PO BID [facility] Last Admin: 09/21/21 20:44 Dose: 100 mg Enoxaparin Sodium (Enoxaparin 40 Mg/0.4 Ml Syringe) 40 mg SQ DAILY [facility] Last Admin: 09/21/21 08:26 Dose: 40 mg Glucose (Dextrose 31 Gm Oral.Susp) 15 gm PO PRN PRN PRN Reason: Hypoglycemia Haloperidol Lactate (Haloperidol Lactate 5 Mg/Ml Vial) 5 mg IV Q4HP PRN PRN Reason: ANXIETY/SEDATION Last Admin: 09/21/21 13:00 Dose: 5 mg Potassium Chloride 40 meq/ (Dextrose) 520 mls @ 130 mls/hr IV UD PRN PRN Reason: Potassium < 3 Magnesium Sulfate (Magnesium Sulfate) 2 gm in 50 mls @ 50 mls/hr IV UD PRN PRN Reason: Magnesium </= 1.6 Insulin Human Lispro (Insulin Lispro 1 Unit/0.01 Ml Unit) 0 unit SQ ACHS [facility]; Protocol Last Admin: 09/22/21 08:15 Dose: Not Given Labetalol HCl (Labetalol 5 Mg/Ml Ml) 10 mg IV Q2HP PRN PRN Reason: Hypertension Lorazepam (Lorazepam 2 Mg/Ml Vial) 1 - 2 mg IV Q4HP PRN PRN Reason: Agitation Last Admin: 09/21/21 14:42 Dose: 1 mg Ondansetron HCl (Ondansetron 4 Mg/2 Ml Vial) 4 mg IV Q4HP PRN PRN Reason: Nausea And Vomiting Polyethylene Glycol (Polyethylene Glycol 3350 17 Gm Packet) 17 gm PO DAILYP PRN PRN Reason: Constipation Potassium Chloride (Potassium Chloride 20 Meq Tablet) 40 meq PO UD PRN PRN Reason: Potssium is 3-3.5 Last Admin: 09/21/21 08:28 Dose: 40 meq Potassium Chloride (Potassium Chloride 20 Meq Tablet) 40 meq PO UD PRN PRN Reason: Potassium < 3 Quetiapine Fumarate (Quetiapine 100 Mg Tablet) 100 mg PO BID [facility] Last Admin: 09/21/21 20:45 Dose: 100 mg Senna (Sennosides 1 Tablet) 2 tab PO DAILYP PRN PRN Reason: Constipation Sodium Chloride (0.9 % Sodium Chloride 10 Ml Syringe) 10 ml IV Q8 [facility] Last Admin: 09/22/21 05:52 Dose: 10 ml A/P Narrative A/P Narrative: A: *?TIA, Right facial droop: resolved -ABCD=4-5 -CTA head/neck unremarkable, unable to do MRI d/t pt compliance, f/u CT no cva noted *Psychosis NOS, possible Schizophrenia based on presentation: -has not seen neuro or psychiatry because the has a hard time getting her to any appointments *Hypokalemia: improved *HTN: *Obesity: BMI 39 *DM: not on meds, A1c 6.9 P: -asa/statin -Delirium precautions, cont home seroquel -telepsych consult awaiting -Monitor and replace electrolytes -CM for placement needs -ppx: Lovenox Time Spent With Patient Time: Total time spent is greater than 50% in coordination of care (as documented) at patient's floor/unit and/or counseling patient: Total time spent with greater than 50% in coordination of care (as documented) at patient's floor/unit and/or counseling patient:: 25 - 35 minutes QUALITY Stroke Onset of Symptoms Date: 09/20/21 Onset of Symptoms Time: 10:30 Symptom Onset Unknown: Yes VTE Deep Vein Thrombosis/Pulmonary Embolism Present on Admission: No
[2021-09-22] MEDS: POTASSIUM CHLORIDE 20 MEQ TABLET PO PRN (09:10)
[2021-09-22] MEDS: QUEtiapine 100 MG TABLET PO SCH ×2 (09:10→20:14)
[2021-09-22] MEDS: ASPIRIN 81 MG TAB.CHEW CHEWED SCH (09:10)
[2021-09-22] MEDS: ENOXAPARIN 40 MG/0.4 ML SYRINGE SQ SCH (09:13)
[2021-09-22] MEDS: DOCUSATE SODIUM 100 MG CAPSULE PO SCH ×2 (09:13→20:14)
--- NOTE | 2021-09-22 09:15 | Behavioral Health Consult ---
HPI History of Present Illness Patient information: Note initiated : 09/22/21 at 9:13 am Service Date, if different from initiated Date: [] Patient: Kamla Will 66 y/o F admitted on 09/20/21 for stroke symptoms. Chief Complaint: [] Chief complaint: psychosis vs dementia History of present illness: Name: Abby WillDOB: 1955 DateandTime: 09/22/2021 11:59:14 AM Location of the [facility] IPLocation of the doctor: [place], [place] Length of consult: 60 This evaluation was conducted via video telepsychiatry with the assistance of onsite staff Reason for consult: Pharmacotherapy Requested by: Dr. Power History of Present Illness: 66 yr old female, unclear psychiatric history who was admitted for stroke like symptoms. Initial ED notes indicate advanced dementia, concern from primary team of underlying psychiatric illness. Is prescribed seroquel by PCP as best as I can tell/ She is DNR and has a Qtc of 494. I did try to reach out to kendra this morning to get a sense of baseline however, he was not able to take my call. Nursing reprort does not indicate that she is combative with care. On eval she is not aware where she is, what today's date or why she is here. SHe answers all questions inappropriately and in a word salad Collateral Contacted: YesCollateral name:Valentina phone number: [phone] relationship to the patient: Sleep issues?: Unknown-NA Psychiatric History/Treatment History: Past diagnoses: dementia noted in chart Hospitalizations: Unknown-NA Current Treatment:Unknown-NA Suicide Assessment: PSS-3: 1) Over the past 2 weeks have you felt down, depressed or hopeless? 2) Over the past 2 weeks have you had thoughts of killing yourself? 3) Have you ever in your life attempted to kill yourself? Within the past 6 months? [facility] Safety Assessment: Risk Factors Stressors: failing health, failure to thrive Attempts/Self-injury: Unknown-NA Impulsivity:No Drug/Alcohol History:Unknown-NA Trauma History:Unknown-NA Access to firearms:Unknown-NA HI/Violence/Property destruction:Unknown-NA Legal: Unknown-NA Family Psych History:Unknown-NA Family History of suicide:Unknown-NA Protective Factors: Can handle stress well?Unknown-NA Jehovah'S Witness?Unknown-NA External: Social supports/ Therapeutic relationships: Unknown-NA Relationship history: apparently through chart review Living situation: lives with Employment: No Education: unknown w Responsibility to family/children/work: Unknown-NA Future orientation:Unknown-NA Health History: Medical History: Diabetes, HTN Medications & Freq: Seroquel 100mg BID Allergies: Amoxicillin, Latex, Codeine, metals Mental Status Exam: Appearance and Attire:Unkempt, Disheveled Psychomotor agitation:Psychomotor agitation, restless Attitude and behavior:unable to participate Speech:rambling , slurred difficult to understand Mood:Not irritable, answers loosely Affect:Irritable Thought process:Not logical, Incoherent, word salad Thought content:too disorganized to understand Perception:Auditory hallucinations, Visual hallucinations Intel:Not able to assess Abstract:Poor reasoning Language:Impaired to Naming, Word finding intact, Repitition intact Orientation:Disoriented to person, Disoriented to place, Disoriented to time, Disoriented to situation Sense:Distractible Knowledge:unable to assess Memory:Impaired to Executive function Insight:Severe impairment Judgement:Severe impairment Gait:N/A Impression/Risk Assessment: Current Suicide Risk Elevated?No Current Violence Risk Elevated?Yes Description:advancing dementia, poor comprehension Issues with ability to care for self?Yes Description:advancing dementia Summary: 66 yr old female, unclear psychiatric history although chart notes psyc hosis NOS. Current presentation in line with noted history of progressive dementia suspect there is a component of superimposed delirium on top of an advancing dementia and related psychosis associated with her dementia rather than a true psychiatric illness given how confused she is which is a typical of a primary psychiatric d/o. I would have like to get collateral from to get a sense of her baseline prior to admission however he did not take my call. THis would ultimately help with level of care.As if she is at or near her baseline and unable to meet needs likely placement in memory care. If she is not at baseline continued supportive treatment for delirium. Diagnosis: F03.91 Unspecified dementia with behavioral disturbance, F05 Delirium due to known physiological condition CPT Codes: 69604 - Psychiatric Diagnostic Evaluation with Medical Services Treatment Plan: General: As of right now she is not combative with care, should she become combative can continue with with seroquel titration 100Qam, 100mg Qafternoon, 200mg Qhs, with a r/b with that increasing doses increase risk of arrhythmia and sudden cardiac as she is nearing a Qtc of 500ms She is DNR at this point. Also if she is at or near baseline palliative care consult can be considered for further goals of care discussion Level of Care: No indication for inpatient psychiatric care Psychiatric Clearance: Yes Observation level 1:1 needed?: NA Pharmacological: as above Patient psychotic?No Therapy: supportive Follow up needed while in the hospital?: No Discussed plan with onsite crew team member: Yes Who Miracle/ dr. Power [facility] All Active Problems (Updated 09/20/21 @ 15:31 by Ramya Lujan PA-C) Stroke (Acute) Loose stools (Acute) Constipation (Acute) Hypokalemia (Acute) Hypertension (Chronic) History of tonsillectomy (Chronic) History of colonoscopy (Chronic) History of (Chronic) History of appendectomy (Chronic) Obesity (Chronic) Hypercholesterolemia (Chronic) Medical History (Updated 09/20/21 @ 15:31 by Ramya Lujan PA-C) Abscess of anal and rectal regions Alcohol abuse None since 1994 Allergic rhinitis 09/29/2012 Bunion 12/08/13 - Long Burn Cellulitis Dental abscess Dysphagia Edema Elevated blood-pressure reading without diagnosis of hypertension Foot pain 01/03/14 - Long Hypercholesterolemia Hypertension Hypokalemia Obesity Rash Rectal fistula Sacroiliitis Tobacco abuse Tobacco abuse - smoking Surgical History History of appendectomy History of History of colonoscopy 2006; [place], [place] History of tonsillectomy Family History Unknown Alcohol abuse Father Cardiac arrhythmia Pacemaker Mother Malignant Neoplasm of Thyroid Gland, Onset Age: 48 Social History household members: spouse housing: house lives independently: Yes marital status: education level: vocational service: No occupational status: retired occupation: HVAC, ranching, homemaker eating out: rarely or never physical activity: walking smoking status: Former smoker quit date: 03/11/16 alcohol intake frequency: does not drink substance use type: does not use belen/anabaptism: None seatbelt use: always additional history: Nicotine Free Vape MEDS/ALLERGIES Home Medications and Allergies Home Medications Medication Instructions Recorded Confirmed Type quetiapine 50 mg tablet 100 mg PO BID 30 days #120 tabs 04/06/21 09/20/21 Rx Allergies Allergy/AdvReac Type Severity Reaction Status Date / Time Amoxicillin Allergy Severe facial Verified 09/20/21 18:25 swelling latex [LATEX] Allergy Intermediate RASH Verified 09/20/21 18:25 codeine [CODEINE] Allergy Unknown DIZZY, Verified 09/20/21 18:25 HEART RACING metals AdvReac Intermediate Redness of Uncoded 07/31/21 14:35 Skin Physical Examination Vital Signs Vital signs: Temp Pulse Resp BP Pulse Ox O2 Del Method 97.5 F 89 17 158/82 98 09/22/21 08:01 09/22/21 08:01 09/22/21 08:01 09/22/21 08:01 09/22/21 08:01 09/21/21 20:00 Results Laboratory Findings CBC and BMP: 09/20/21 13:35 09/22/21 05:36 Abnormal lab findings: Abnormal Labs 09/20/21 09/20/21 09/20/21 13:35 13:35 13:35 RDW 15.3 H POC Potassium Potassium POC BUN BUN Glucose POC Glucose Hemoglobin A1c 6.9 H Calcium POC WB Ioniz Calcium Alkaline Phosphatase 122 H Lactate Dehydrogenase Urine Occult Blood Ur Leukocyte Esterase Urine WBC Urine Mucus POC Troponin I 09/20/21 09/20/21 09/20/21 13:41 13:42 15:35 RDW POC Potassium 3.0 L Potassium POC BUN 5 L BUN Glucose POC Glucose 183 H Hemoglobin A1c Calcium POC WB Ioniz Calcium 1.03 L Alkaline Phosphatase Lactate Dehydrogenase Urine Occult Blood Trace-intact A Ur Leukocyte Esterase Trace A Urine WBC 9 H Urine Mucus Few A POC Troponin I 0.01 L 09/21/21 09/22/21 05:24 05:36 RDW POC Potassium Potassium 3.2 L POC BUN BUN 5 L 7 L Glucose 120 H POC Glucose Hemoglobin A1c Calcium 8.5 L POC WB Ioniz Calcium Alkaline Phosphatase Lactate Dehydrogenase 227 H Urine Occult Blood Ur Leukocyte Esterase Urine WBC Urine Mucus POC Troponin I A/P Time Spent With Patient Time: Total time spent is greater than 50% in coordination of care (as documented) at patient's floor/unit and/or counseling patient:
[2021-09-22] MEDS: ACETAMINOPHEN 325 MG TABLET PO PRN (15:32)
[2021-09-22] MEDS: LORazepam 2 MG/ML VIAL IV PRN ×2 (16:54→21:46)
[2021-09-22] MEDS: ATORVASTATIN 40 MG TABLET PO SCH (20:14)
[2021-09-22] MEDS: diphenhydrAMINE 50 MG/ML VIAL IV PRN (22:31)
[2021-09-22] MEDS: HALOPERIDOL LACTATE 5 MG/ML VIAL IV PRN (22:31)
[2021-09-22] MEDS ORDERED: 0.9 % SODIUM CHLORIDE 1,000 ML IV ONE (22:51)
[2021-09-23] MEDS: 0.9 % SODIUM CHLORIDE 10 ML SYRINGE IV SCH ×3 (06:12→21:08)
[2021-09-23 06:33] LABS: ALT/SGPT 10 U/L (<40); AST/SGOT 15 U/L (<32); Albumin 3.1 gm/dL (3.2-5.2); Alkaline Phosphatase 102 U/L (39-117); Bilirubin,Direct < 0.2 mg/dL (0-0.3); Bilirubin,Total 0.6 mg/dL (0.1-1.0); Blood Urea Nitrogen 7 mg/dL (8-23); Calcium 8.2 mg/dL (8.6-10.4); Carbon Dioxide 24 mmol/L (22-30); Chloride 103 mmol/L (96-108); Globulin 3.1 gm/dL (2.2-3.7); Glomerular Filtration Rate 95; Glucose 104 mg/dL (70-105); Lactate Dehydrogenase 165 U/L (135-225); Phosphorous 3.1 mg/dL (2.5-4.5); Triglycerides 115 mg/dL (<150); Uric Acid 5.6 mg/dL (2.5-8.0)
[2021-09-23] MEDS: INSULIN LISPRO 1 UNIT/0.01 ML UNIT SQ SCH ×4 (06:56→20:27)
--- NOTE | 2021-09-23 07:56 | Internal Med Progress Note ---
SUBJECTIVE Subjective Patient information: Note initiated : 09/23/21 at 7:51 am Service Date, if different from initiated Date: [] Patient: Kamla Will 66 y/o F admitted on 09/20/21 for stroke symptoms. Chief Complaint: [] Interval history: History of present illness: Ms. Will is a 66 year old F With a history of borderline diabetes hypertension obesity and psychiatric illness not otherwise specified. History is obtained from as patient cannot give accurate history. Per the she has significant facial droop on the right side today as a few minutes ago when I visited with the patient and the he says it has improved some. Telestroke was contacted who recommended aspirin stroke work-up including MRI, permissive hypertension, etc. is also having difficult time taking care of and needs assistance and we may need to look in to placement options. Per the over the past 5+ years she has had significant cognitive impairment and has gotten worse in the past year or so. Labs were essentially unremarkable except for potassium that was 3.0. EKG shows sinus rhythm. She was hypertensive at 191/63. Hold blood pressure trends show she is always mildly hypertensive but not quite this high. She does take a combination of triamterene hydrochlorothiazide for blood pressure. Patient denies numbness or tingling in arms or legs. 09/21 Patient was agitated at night was given multiple medications which did have some temporary effect. Unable to get MRI yesterday because of her impulsive nature and difficulty in directing. Of telepsych consult today. 09/22 No overnight event or new complaints. Patient today is answering my questions a little bit more clearly. Awaiting psychiatry consult. 09/23 No new complaints overnight events. Patient had a telepsych consult few changed her Seroquel to 100 in the morning 100 in the afternoon and 200 at night. Sounds like the is coming in today for goals of care discussion and considering a hospice consult but sounds like. Review of Systems: Unable to accurately obtain given patient's disorganized thoughtc tangential speech. Constitutional Vitals: Vital Signs Temp Pulse Resp BP Pulse Ox O2 Del Method 97.6 F 78 14 155/91 96 09/23/21 05:55 09/23/21 06:01 09/23/21 06:01 09/23/21 06:01 09/23/21 06:01 09/23/21 05:55 Period Temp Pulse Resp BP Sys/Caraballo Pulse Ox O2 Del Method O2 Flow Rate Last 24 Hr 97.1 F-99.3 F 69-89 12-19 126-176/73-104 95-98 Room Air-Room Air Intake and Output 09/22/21 09/23/21 09/23/21 21:59 05:59 13:59 Intake Total 530 Output Total 400 300 Balance 130 -300 Weight 108.409 kg Intake & Output: Intake & Output 09/22/21 09/23/21 09/23/21 21:59 05:59 13:59 Intake Total 530 Output Total 400 300 Balance 130 -300 Weight 108.409 kg Intake: Oral 530 Output: Urine Catheter Amount 400 300 Other: Meal Dinner Percent of Meal Consumed 50% Feeding Ability Total Assistance Urine Appearance Sediment Sediment Small Blood Clots Uretheral (Plasencia) Sediment Small Blood Clots Urine Color Tea Colored Tea Colored Red Brown Uretheral (Plasencia) Tea Colored Red Brown Urine Odor Normal Foul Stool Size Smear Stool Color Brown Stool Consistency Soft Exam: General: Alert, Awake, No acute Distress Eyes/N/T: EOMI, Head/Neck: neck supple, CV: RRR, No murmurs, Pulm: Clear b/l, no wheezing/rhonchi/rales Abd: soft, nontender, +BS x4 Ext: no clubbing/cyanosis/edema Neuro: Alert, no facial droop, moves all extremities spontaneously, difficult to direct. She exhibits severe thought disorganization, hallucinations, and has some delusions, Skin: warm/dry OBJ DATA Labs CBC & Chem 7: 09/20/21 13:35 09/23/21 05:22 Labs: Abnormal Lab Results 09/23/21 09/22/21 09/21/21 05:22 05:36 05:24 RDW POC Potassium Potassium 3.2 L POC BUN BUN 7 L 7 L 5 L Glucose 120 H POC Glucose Hemoglobin A1c Calcium 8.2 L 8.5 L POC WB Ioniz Calcium Alkaline Phosphatase Lactate Dehydrogenase 227 H Albumin 3.1 L Urine Occult Blood Ur Leukocyte Esterase Urine WBC Urine Mucus POC Troponin I 09/20/21 09/20/21 09/20/21 15:35 13:42 13:41 RDW POC Potassium 3.0 L Potassium POC BUN 5 L BUN Glucose POC Glucose 183 H Hemoglobin A1c Calcium POC WB Ioniz Calcium 1.03 L Alkaline Phosphatase Lactate Dehydrogenase Albumin Urine Occult Blood Trace-intact A Ur Leukocyte Esterase Trace A Urine WBC 9 H Urine Mucus Few A POC Troponin I 0.01 L 09/20/21 09/20/21 09/20/21 13:35 13:35 13:35 RDW 15.3 H POC Potassium Potassium POC BUN BUN Glucose POC Glucose Hemoglobin A1c 6.9 H Calcium POC WB Ioniz Calcium Alkaline Phosphatase 122 H Lactate Dehydrogenase Albumin Urine Occult Blood Ur Leukocyte Esterase Urine WBC Urine Mucus POC Troponin I Meds: Medications Acetaminophen (Acetaminophen 325 Mg Tablet) 650 mg PO Q6HP PRN; Protocol PRN Reason: Per Pain Protocol/Fever > 101 Last Admin: 09/22/21 15:32 Dose: 650 mg Albuterol/Ipratropium (Ipratropium/Albuterol 3 Ml Ampul.Neb) 3 ml NEB Q4HP PRN PRN Reason: Shortness Of Breath Aspirin (Aspirin 81 Mg Tab.Chew) 81 mg CHEWED DAILY [facility] Last Admin: 09/22/21 09:10 Dose: 81 mg Atorvastatin Calcium (Atorvastatin 40 Mg Tablet) 80 mg PO HS [facility] Last Admin: 09/22/21 20:14 Dose: 80 mg Dextrose (Dextrose 50% 50 Ml Vial) 0 ml IV UD PRN PRN Reason: Per Sliding Scale Diagnostic Test (Pha) (Accu-Chek 1 Each Strip) 1 each FS BIDAC [facility] Last Admin: 09/23/21 06:55 Dose: Not Given Diphenhydramine HCl (Diphenhydramine 50 Mg/Ml Vial) 25 mg IV Q4-6HP PRN PRN Reason: Anxiety Last Admin: 09/22/21 22:31 Dose: 25 mg Docusate Sodium (Docusate Sodium 100 Mg Capsule) 100 mg PO BID [facility] Last Admin: 09/22/21 20:14 Dose: 100 mg Enoxaparin Sodium (Enoxaparin 40 Mg/0.4 Ml Syringe) 40 mg SQ DAILY [facility] Last Admin: 09/22/21 09:13 Dose: 40 mg Glucose (Dextrose 31 Gm Oral.Susp) 15 gm PO PRN PRN PRN Reason: Hypoglycemia Haloperidol Lactate (Haloperidol Lactate 5 Mg/Ml Vial) 5 mg IV Q4HP PRN PRN Reason: ANXIETY/SEDATION Last Admin: 09/22/21 22:31 Dose: 5 mg Potassium Chloride 40 meq/ (Dextrose) 520 mls @ 130 mls/hr IV UD PRN PRN Reason: Potassium < 3 Magnesium Sulfate (Magnesium Sulfate) 2 gm in 50 mls @ 50 mls/hr IV UD PRN PRN Reason: Magnesium </= 1.6 Sodium Chloride (Sodium Chloride 0.9%) 1,000 mls @ 100 mls/hr IV BOLUS ONE Stop: 09/23/21 08:50 Last Admin: 09/22/21 22:53 Dose: 100 mls/hr Insulin Human Lispro (Insulin Lispro 1 Unit/0.01 Ml Unit) 0 unit SQ ACHS [facility]; Protocol Last Admin: 09/23/21 06:56 Dose: Not Given Labetalol HCl (Labetalol 5 Mg/Ml Ml) 0 mg IV Q2HP PRN PRN Reason: Hypertension Last Admin: 09/22/21 12:49 Dose: 10 mg Lorazepam (Lorazepam 2 Mg/Ml Vial) 1 - 2 mg IV Q4HP PRN PRN Reason: Agitation Last Admin: 09/22/21 21:46 Dose: 2 mg Ondansetron HCl (Ondansetron 4 Mg/2 Ml Vial) 4 mg IV Q4HP PRN PRN Reason: Nausea And Vomiting Polyethylene Glycol (Polyethylene Glycol 3350 17 Gm Packet) 17 gm PO DAILYP PRN PRN Reason: Constipation Potassium Chloride (Potassium Chloride 20 Meq Tablet) 40 meq PO UD PRN PRN Reason: Potssium is 3-3.5 Last Admin: 09/22/21 09:10 Dose: 40 meq Potassium Chloride (Potassium Chloride 20 Meq Tablet) 40 meq PO UD PRN PRN Reason: Potassium < 3 Quetiapine Fumarate (Quetiapine 100 Mg Tablet) 100 mg PO BID [facility] Last Admin: 09/22/21 20:14 Dose: 100 mg Senna (Sennosides 1 Tablet) 2 tab PO DAILYP PRN PRN Reason: Constipation Sodium Chloride (0.9 % Sodium Chloride 10 Ml Syringe) 10 ml IV Q8 [facility] Last Admin: 09/23/21 06:12 Dose: 10 ml A/P Narrative A/P Narrative: A: *?TIA, Right facial droop: resolved -ABCD=4-5 -CTA head/neck unremarkable, unable to do MRI d/t pt compliance, f/u CT no cva noted *Advanced Dementia w/behavioral disturbance: *Hypokalemia: improved *HTN: elevated *Obesity: BMI 39 *DM: not on meds, A1c 6.9 *goals of care discussion with family/CM P: -asa/statin -Delirium precautions -per telepsych consult > increase seroquel to 100qam 100afternoon, 200qhs -Monitor and replace electrolytes -started norvasc -CM for placement needs -ppx: Lovenox Time Spent With Patient Time: Total time spent is greater than 50% in coordination of care (as documented) at patient's floor/unit and/or counseling patient: Total time spent with greater than 50% in coordination of care (as documented) at patient's floor/unit and/or counseling patient:: 25 - 35 minutes QUALITY Stroke Onset of Symptoms Date: 09/20/21 Onset of Symptoms Time: 10:30 Symptom Onset Unknown: Yes VTE Deep Vein Thrombosis/Pulmonary Embolism Present on Admission: No
[2021-09-23] MEDS ORDERED: QUEtiapine 100 MG TABLET PO SCH (09:00)
[2021-09-23] MEDS: amLODIPine 5 MG TABLET PO SCH (09:19)
[2021-09-23] MEDS: DOCUSATE SODIUM 100 MG CAPSULE PO SCH ×2 (09:19→20:27)
[2021-09-23] MEDS: ASPIRIN 81 MG TAB.CHEW CHEWED SCH (09:19)
[2021-09-23] MEDS: ENOXAPARIN 40 MG/0.4 ML SYRINGE SQ SCH (09:19)
[2021-09-23] MEDS: QUEtiapine 100 MG TABLET PO SCH ×3 (09:33→20:27)
[2021-09-23] MEDS: ATORVASTATIN 40 MG TABLET PO SCH (20:27)
[2021-09-23] MEDS: POLYETHYLENE GLYCOL 3350 17 GM PACKET PO PRN (20:27)
[2021-09-23] MEDS: LORazepam 2 MG/ML VIAL IV PRN (20:48)
[2021-09-23] MEDS: diphenhydrAMINE 50 MG/ML VIAL IV PRN (21:27)
[2021-09-23] MEDS: HALOPERIDOL LACTATE 5 MG/ML VIAL IV PRN (21:27)
[2021-09-24] MEDS: 0.9 % SODIUM CHLORIDE 10 ML SYRINGE IV SCH (05:44)
[2021-09-24] MEDS: INSULIN LISPRO 1 UNIT/0.01 ML UNIT SQ SCH ×2 (07:45→12:10)
[2021-09-24] MEDS: amLODIPine 5 MG TABLET PO SCH (09:37)
[2021-09-24] MEDS: DOCUSATE SODIUM 100 MG CAPSULE PO SCH ×2 (09:37→20:33)
[2021-09-24] MEDS: QUEtiapine 100 MG TABLET PO SCH ×3 (09:37→20:33)
[2021-09-24] MEDS: ENOXAPARIN 40 MG/0.4 ML SYRINGE SQ SCH (09:37)
[2021-09-24] MEDS: ASPIRIN 81 MG TAB.CHEW CHEWED SCH (09:37)
[2021-09-24] MEDS ORDERED: morphine 15 MG TABLET PO PRN (11:25)
--- NOTE | 2021-09-24 11:29 | Internal Med Progress Note ---
SUBJECTIVE Subjective Patient information: Note initiated : 09/24/21 at 11:28 am Service Date, if different from initiated Date: [] Patient: Kamla Will 66 y/o F admitted on 09/24/21 for stroke symptoms. Chief Complaint: [] Principal diagnosis: Suspected stroke Interval history: The patient was resting comfortably in bed. She is not able to carry a conversation due to her advanced dementia discussed the case with the RN. Constitutional Vitals: Vital Signs Temp Pulse Resp BP Pulse Ox O2 Del Method O2 Flow Rate 97.6 F 84 20 160/86 96 0 09/24/21 07:56 09/24/21 07:56 09/24/21 07:56 09/24/21 07:56 09/24/21 07:56 09/23/21 23:24 09/24/21 07:56 Period Temp Pulse Resp BP Sys/Caraballo Pulse Ox O2 Del Method O2 Flow Rate Last 24 Hr 97.6 F-98.1 F 84-90 14-20 137-175/79-107 95-98 Room Air-Room Air 0 Intake and Output 09/23/21 09/24/21 09/24/21 21:59 05:59 13:59 Intake Total 640 118 Output Total 525 1025 Balance 115 -907 Weight 109.004 kg Intake & Output: Intake & Output 09/23/21 09/24/21 09/24/21 21:59 05:59 13:59 Intake Total 640 118 Output Total 525 1025 Balance 115 -907 Weight 109.004 kg Intake: Oral 640 118 Output: Urine Catheter Amount 525 475 Void Amount 550 Other: Meal Dinner Percent of Meal Consumed 50% Feeding Ability Total Assistance Urine Appearance Sediment Cloudy Small Blood Clots Uretheral (Plasencia) Sediment Sediment Small Blood Clots Hematuria Urine Color Light Barbara Light Barbara Blood Tinged Uretheral (Plasencia) Dark Barbara Dark Yellow Urine Odor Foul Foul Head Head exam: Present atraumatic and normal inspection Eye Eye exam: Present normal appearance ENT ENT exam: Present mucous membranes moist, normal exam and normal external ear exam Neck Neck exam: Present normal inspection Respiratory Respiratory exam: Present normal respiratory exam Cardiovascular Cardiovascular exam: Present normal rate and rhythm GI/Abdominal GI/Abdominal exam: Present normal bowel sounds Back Exam Back exam: Present normal inspection Neurological Exam Neurological exam: Present alert Skin Skin exam: Present intact and warm OBJ DATA Labs CBC & Chem 7: 08/11/22 13:35 09/23/21 05:22 Labs: Abnormal Lab Results 09/23/21 09/22/21 05:22 05:36 BUN 7 L 7 L Calcium 8.2 L 8.5 L Albumin 3.1 L Meds: Medications Acetaminophen (Acetaminophen 325 Mg Tablet) 650 mg PO Q6HP PRN; Protocol PRN Reason: Per Pain Protocol/Fever > 101 Last Admin: 09/22/21 15:32 Dose: 650 mg Albuterol/Ipratropium (Ipratropium/Albuterol 3 Ml Ampul.Neb) 3 ml NEB Q4HP PRN PRN Reason: Shortness Of Breath Amlodipine Besylate (Amlodipine 5 Mg Tablet) 5 mg PO DAILY [facility] Last Admin: 09/24/21 09:37 Dose: 5 mg Aspirin (Aspirin 81 Mg Tab.Chew) 81 mg CHEWED DAILY [facility] Last Admin: 09/24/21 09:37 Dose: 81 mg Atorvastatin Calcium (Atorvastatin 40 Mg Tablet) 80 mg PO HS [facility] Last Admin: 09/23/21 20:27 Dose: 80 mg Dextrose (Dextrose 50% 50 Ml Vial) 0 ml IV UD PRN PRN Reason: Per Sliding Scale Diagnostic Test (Pha) (Accu-Chek 1 Each Strip) 1 each FS BIDAC [facility] Last Admin: 09/24/21 07:44 Dose: 1 each Diphenhydramine HCl (Diphenhydramine 50 Mg/Ml Vial) 25 mg IV Q4-6HP PRN PRN Reason: Anxiety Last Admin: 09/23/21 21:27 Dose: 25 mg Docusate Sodium (Docusate Sodium 100 Mg Capsule) 100 mg PO BID [facility] Last Admin: 09/24/21 09:37 Dose: 100 mg Enoxaparin Sodium (Enoxaparin 40 Mg/0.4 Ml Syringe) 40 mg SQ DAILY [facility] Last Admin: 09/24/21 09:37 Dose: 40 mg Glucose (Dextrose 31 Gm Oral.Susp) 15 gm PO PRN PRN PRN Reason: Hypoglycemia Haloperidol Lactate (Haloperidol Lactate 5 Mg/Ml Vial) 5 mg IV Q4HP PRN PRN Reason: ANXIETY/SEDATION Last Admin: 09/23/21 21:27 Dose: 5 mg Potassium Chloride 40 meq/ (Dextrose) 520 mls @ 130 mls/hr IV UD PRN PRN Reason: Potassium < 3 Magnesium Sulfate (Magnesium Sulfate) 2 gm in 50 mls @ 50 mls/hr IV UD PRN PRN Reason: Magnesium </= 1.6 Insulin Human Lispro (Insulin Lispro 1 Unit/0.01 Ml Unit) 0 unit SQ ACHS [facility]; Protocol Last Admin: 09/24/21 07:45 Dose: Not Given Labetalol HCl (Labetalol 5 Mg/Ml Ml) 0 mg IV Q2HP PRN PRN Reason: Hypertension Last Admin: 09/22/21 12:49 Dose: 10 mg Lorazepam (Lorazepam 2 Mg/Ml Vial) 1 - 2 mg IV Q4HP PRN PRN Reason: Agitation Last Admin: 09/23/21 20:48 Dose: 2 mg Morphine Sulfate (Morphine 15 Mg Tablet) 15 mg PO Q4-6HP PRN; Protocol PRN Reason: Per Pain Protocol Ondansetron HCl (Ondansetron 4 Mg/2 Ml Vial) 4 mg IV Q4HP PRN PRN Reason: Nausea And Vomiting Polyethylene Glycol (Polyethylene Glycol 3350 17 Gm Packet) 17 gm PO DAILYP PRN PRN Reason: Constipation Last Admin: 09/23/21 20:27 Dose: 17 gm Potassium Chloride (Potassium Chloride 20 Meq Tablet) 40 meq PO UD PRN PRN Reason: Potssium is 3-3.5 Last Admin: 09/22/21 09:10 Dose: 40 meq Potassium Chloride (Potassium Chloride 20 Meq Tablet) 40 meq PO UD PRN PRN Reason: Potassium < 3 Quetiapine Fumarate (Quetiapine 100 Mg Tablet) 100 mg PO BID@0900,1500 [facility] Last Admin: 09/24/21 09:37 Dose: 100 mg Quetiapine Fumarate (Quetiapine 100 Mg Tablet) 200 mg PO HS [facility] Last Admin: 09/23/21 20:27 Dose: 200 mg Senna (Sennosides 1 Tablet) 2 tab PO DAILYP PRN PRN Reason: Constipation Sodium Chloride (0.9 % Sodium Chloride 10 Ml Syringe) 10 ml IV Q8 [facility] Last Admin: 09/24/21 05:44 Dose: 10 ml A/P Narrative A/P Narrative: A: *?TIA, Right facial droop: resolved -ABCD=4-5 -CTA head/neck unremarkable, unable to do MRI d/t pt compliance, f/u CT no cva noted *Advanced Dementia w/behavioral disturbance: *Hypokalemia: improved *HTN: elevated *Obesity: BMI 39 *DM: not on meds, A1c 6.9 *goals of care discussion with family/CM P: -09/24: The patient will be transition to comfort measures only. Any unnecessary medications will be discontinued. -asa/statin d/c -Delirium precautions -per telepsych consult > increase seroquel to 100qam 100afternoon, 200qhs -Monitor and replace electrolytes -d/c norvasc -CM for placement needs -ppx: Lovenox Time Spent With Patient Time: Total time spent is greater than 50% in coordination of care (as documented) at patient's floor/unit and/or counseling patient: Total time spent with greater than 50% in coordination of care (as documented) at patient's floor/unit and/or counseling patient:: 25 - 35 minutes QUALITY Stroke Onset of Symptoms Date: 09/20/21 Onset of Symptoms Time: 10:30 Symptom Onset Unknown: Yes VTE Deep Vein Thrombosis/Pulmonary Embolism Present on Admission: No
[2021-09-24] MEDS ORDERED: HALOPERIDOL 5 MG TABLET PO PRN (18:42)
[2021-09-24] MEDS ORDERED: ONDANSETRON 4 MG ODT TABLET SL PRN (18:43)
[2021-09-25] MEDS: QUEtiapine 100 MG TABLET PO SCH ×3 (08:11→20:40)
[2021-09-25] MEDS: DOCUSATE SODIUM 100 MG CAPSULE PO SCH ×2 (08:12→20:41)
[2021-09-25] MEDS: POLYETHYLENE GLYCOL 3350 17 GM PACKET PO PRN (08:16)
--- NOTE | 2021-09-25 10:38 | Internal Med Progress Note ---
SUBJECTIVE Subjective Patient information: Note initiated : 09/25/21 at 10:36 am Service Date, if different from initiated Date: [] Patient: Kamla Will 66 y/o F admitted on 09/24/21 for stroke symptoms. Chief Complaint: [ALOC] Principal diagnosis: Suspected stroke Interval history: The patient was resting comfortably in bed. She is not able to carry a conversation due to her advanced dementia discussed the case with the RN. Constitutional Vitals: Vital Signs Temp Pulse Resp BP Pulse Ox O2 Del Method O2 Flow Rate 97.1 F 98 H 20 150/86 96 0 09/25/21 07:58 09/25/21 07:58 09/24/21 07:56 09/25/21 07:58 09/25/21 07:58 09/24/21 20:00 09/24/21 07:56 Period Temp Pulse Resp BP Sys/Caraballo Pulse Ox O2 Del Method O2 Flow Rate Last 24 Hr 97.1 F-98.1 F 77-98 150-157/86-88 95-96 Room Air Intake and Output 09/24/21 09/25/21 09/25/21 21:59 05:59 13:59 Intake Total 50 240 Output Total 1250 100 Balance -1200 -100 240 Intake & Output: Intake & Output 09/24/21 09/25/21 09/25/21 21:59 05:59 13:59 Intake Total 50 240 Output Total 1250 100 Balance -1200 -100 240 Intake: Oral 50 240 Output: Urine Catheter Amount 1250 100 Other: Meal ice cream Breakfast Percent of Meal Consumed 50% bites Feeding Ability Total Assistance Urine Appearance Clear Cloudy Uretheral ([place]) Sediment Urine Color Light Barbara Dark Yellow Uretheral ([place]) Light Barbara Urine Odor Foul Foul # Bowel Movements 0 # of times incontinent of 0 Bowels Head Head exam: Present atraumatic and normal inspection Eye Eye exam: Present normal appearance ENT ENT exam: Present mucous membranes moist, normal exam and normal external ear exam Neck Neck exam: Present normal inspection Respiratory Respiratory exam: Present normal respiratory exam Cardiovascular Cardiovascular exam: Present normal rate and rhythm GI/Abdominal GI/Abdominal exam: Present normal bowel sounds Back Exam Back exam: Present normal inspection Neurological Exam Neurological exam: Present alert Skin Skin exam: Present intact and warm OBJ DATA Labs CBC & Chem 7: 09/20/21 13:35 09/23/21 05:22 Labs: Abnormal Lab Results 09/23/21 05:22 BUN 7 L Calcium 8.2 L Albumin 3.1 L Meds: Medications Acetaminophen (Acetaminophen 325 Mg Tablet) 650 mg PO Q6HP PRN; Protocol PRN Reason: Per Pain Protocol/Fever > 101 Last Admin: 09/22/21 15:32 Dose: 650 mg Albuterol/Ipratropium (Ipratropium/Albuterol 3 Ml Ampul.Neb) 3 ml NEB Q4HP PRN PRN Reason: Shortness Of Breath Diphenhydramine HCl (Diphenhydramine 25 Mg Capsule) 25 mg PO Q4-6HP PRN PRN Reason: ANXIETY/SEDATION Docusate Sodium (Docusate Sodium 100 Mg Capsule) 100 mg PO BID [facility] Last Admin: 09/25/21 08:12 Dose: 100 mg Haloperidol (Haloperidol 5 Mg Tablet) 2.5 mg PO Q4HP PRN PRN Reason: ANXIETY/SEDATION Morphine Sulfate (Morphine 15 Mg Tablet) 15 mg PO Q4-6HP PRN; Protocol PRN Reason: Per Pain Protocol Ondansetron HCl (Ondansetron 4 Mg Odt Tablet) 4 mg SL Q4-6HP PRN PRN Reason: Nausea And Vomiting Polyethylene Glycol (Polyethylene Glycol 3350 17 Gm Packet) 17 gm PO DAILYP PRN PRN Reason: Constipation Last Admin: 09/25/21 08:16 Dose: 17 gm Quetiapine Fumarate (Quetiapine 100 Mg Tablet) 100 mg PO BID@0900,1500 [facility] Last Admin: 09/25/21 08:11 Dose: 100 mg Quetiapine Fumarate (Quetiapine 100 Mg Tablet) 200 mg PO HS [facility] Last Admin: 09/24/21 20:33 Dose: 200 mg Senna (Sennosides 1 Tablet) 2 tab PO DAILYP PRN PRN Reason: Constipation A/P Narrative A/P Narrative: A: *?TIA, Right facial droop: resolved -ABCD=4-5 -CTA head/neck unremarkable, unable to do MRI d/t pt compliance, f/u CT no cva noted *Advanced Dementia w/behavioral disturbance: *Hypokalemia: improved *HTN: elevated *Obesity: BMI 39 *DM: not on meds, A1c 6.9 *goals of care discussion with family/CM P: -09/25: The patient will be transferred to med/surg, awaiting placement -09/24: The patient will be transition to comfort measures only. Any unnecessary medications will be discontinued. -asa/statin d/c -Delirium precautions -per telepsych consult > increase seroquel to 100qam 100afternoon, 200qhs -Monitor and replace electrolytes -d/c norvasc -CM for placement needs -ppx: Lovenox Time Spent With Patient Time: Total time spent is greater than 50% in coordination of care (as documented) at patient's floor/unit and/or counseling patient: Total time spent with greater than 50% in coordination of care (as documented) at patient's floor/unit and/or counseling patient:: 25 - 35 minutes QUALITY Stroke Onset of Symptoms Date: 09/20/21 Onset of Symptoms Time: 10:30 Symptom Onset Unknown: Yes VTE Deep Vein Thrombosis/Pulmonary Embolism Present on Admission: No
[2021-09-26] MEDS: ACETAMINOPHEN 325 MG TABLET PO PRN (05:56)
[2021-09-26] MEDS: DOCUSATE SODIUM 100 MG CAPSULE PO SCH ×2 (09:47→21:21)
[2021-09-26] MEDS: QUEtiapine 100 MG TABLET PO SCH ×3 (09:47→21:21)
[2021-09-26] MEDS: diphenhydrAMINE 25 MG CAPSULE PO PRN ×2 (10:59→23:24)
--- NOTE | 2021-09-26 11:08 | Internal Med Progress Note ---
SUBJECTIVE Subjective Patient information: Note initiated : 09/26/21 at 11:07 am Service Date, if different from initiated Date: [] Patient: Kamla Will 66 y/o F admitted on 09/24/21 for stroke symptoms. Chief Complaint: [] Principal diagnosis: Suspected stroke Interval history: The patient was resting comfortably in bed. Constitutional Vitals: Vital Signs Temp Pulse Resp BP Pulse Ox O2 Del Method O2 Flow Rate 96.4 F L 86 14 144/80 95 0 09/26/21 08:00 09/26/21 08:00 09/26/21 08:00 09/26/21 08:00 09/26/21 08:00 09/26/21 08:00 09/24/21 07:56 Period Temp Pulse Resp BP Sys/Caraballo Pulse Ox O2 Del Method O2 Flow Rate Last 24 Hr 96.4 F-97.9 F 86-99 13-14 131-144/73-80 95-96 Room Air-Room Air Intake and Output 09/25/21 09/26/21 09/26/21 21:59 05:59 13:59 Intake Total 240 Output Total 450 400 Balance -450 -160 Intake & Output: Intake & Output 09/25/21 09/26/21 09/26/21 21:59 05:59 13:59 Intake Total 240 Output Total 450 400 Balance -450 -160 Intake: Oral 240 Output: Urine Catheter Amount 450 400 Other: Meal Dinner Percent of Meal Consumed 30 Feeding Ability Total Assistance Urine Appearance Uretheral ([place]) Sediment Urine Color Yellow Brown Dark Barbara Uretheral ([place]) Dark Barbara Urine Odor Foul Head Head exam: Present atraumatic and normal inspection Eye Eye exam: Present normal appearance ENT ENT exam: Present mucous membranes moist, normal exam and normal external ear exam Neck Neck exam: Present normal inspection Respiratory Respiratory exam: Present normal respiratory exam Cardiovascular Cardiovascular exam: Present normal rate and rhythm; Absent bradycardia, gallop, irregular rhythm or JVD GI/Abdominal GI/Abdominal exam: Present normal bowel sounds Back Exam Back exam: Present normal inspection Neurological Exam Neurological exam: Present alert and altered Skin Skin exam: Present intact and warm OBJ DATA Labs CBC & Chem 7: 09/20/21 13:35 09/23/21 05:22 Meds: Medications Acetaminophen (Acetaminophen 325 Mg Tablet) 650 mg PO Q6HP PRN; Protocol PRN Reason: Per Pain Protocol/Fever > 101 Last Admin: 09/26/21 05:56 Dose: 650 mg Albuterol/Ipratropium (Ipratropium/Albuterol 3 Ml Ampul.Neb) 3 ml NEB Q4HP PRN PRN Reason: Shortness Of Breath Diphenhydramine HCl (Diphenhydramine 25 Mg Capsule) 25 mg PO Q4-6HP PRN PRN Reason: ANXIETY/SEDATION Last Admin: 09/26/21 10:59 Dose: 25 mg Docusate Sodium (Docusate Sodium 100 Mg Capsule) 100 mg PO BID [facility] Last Admin: 09/26/21 09:47 Dose: 100 mg Haloperidol (Haloperidol 5 Mg Tablet) 2.5 mg PO Q4HP PRN PRN Reason: ANXIETY/SEDATION Morphine Sulfate (Morphine 15 Mg Tablet) 15 mg PO Q4-6HP PRN; Protocol PRN Reason: Per Pain Protocol Ondansetron HCl (Ondansetron 4 Mg Odt Tablet) 4 mg SL Q4-6HP PRN PRN Reason: Nausea And Vomiting Polyethylene Glycol (Polyethylene Glycol 3350 17 Gm Packet) 17 gm PO DAILYP PRN PRN Reason: Constipation Last Admin: 09/25/21 08:16 Dose: 17 gm Quetiapine Fumarate (Quetiapine 100 Mg Tablet) 100 mg PO BID@0900,1500 [facility] Last Admin: 09/26/21 09:47 Dose: 100 mg Quetiapine Fumarate (Quetiapine 100 Mg Tablet) 200 mg PO HS [facility] Last Admin: 09/25/21 20:40 Dose: 200 mg Senna (Sennosides 1 Tablet) 2 tab PO DAILYP PRN PRN Reason: Constipation A/P Narrative A/P Narrative: A: *?TIA, Right facial droop: resolved -ABCD=4-5 -CTA head/neck unremarkable, unable to do MRI d/t pt compliance, f/u CT no cva noted *Advanced Dementia w/behavioral disturbance: *Hypokalemia: improved *HTN: elevated *Obesity: BMI 39 *DM: not on meds, A1c 6.9 *goals of care discussion with family/CM P: -09/26: Social work is working on LTC benefits -09/25: The patient will be transferred to med/surg, awaiting placement -09/24: The patient will be transition to comfort measures only. Any unnecessary medications will be discontinued. -asa/statin d/c -Delirium precautions -per telepsych consult > increase seroquel to 100qam 100afternoon, 200qhs -Monitor and replace electrolytes -d/c norvasc -CM for placement needs -ppx: Lovenox Time Spent With Patient Time: Total time spent is greater than 50% in coordination of care (as documented) at patient's floor/unit and/or counseling patient: Total time spent with greater than 50% in coordination of care (as documented) at patient's floor/unit and/or counseling patient:: 25 - 35 minutes QUALITY Stroke Onset of Symptoms Date: 09/20/21 Onset of Symptoms Time: 10:30 Symptom Onset Unknown: Yes VTE Deep Vein Thrombosis/Pulmonary Embolism Present on Admission: No
[2021-09-26] MEDS: POLYETHYLENE GLYCOL 3350 17 GM PACKET PO PRN (21:22)
[2021-09-27] MEDS: DOCUSATE SODIUM 100 MG CAPSULE PO SCH ×2 (08:25→21:49)
[2021-09-27] MEDS: QUEtiapine 100 MG TABLET PO SCH ×3 (08:25→21:49)
--- NOTE | 2021-09-27 11:25 | Internal Med Progress Note ---
SUBJECTIVE Subjective Patient information: Note initiated : 09/27/21 at 11:24 am Service Date, if different from initiated Date: [] Patient: Kamla Will 66 y/o F admitted on 09/24/21 for stroke symptoms. Chief Complaint: [] Principal diagnosis: Suspected stroke Interval history: No active complaints or concerns. Constitutional Vitals: Vital Signs Temp Pulse Resp BP Pulse Ox O2 Del Method O2 Flow Rate 98.1 F 92 H 14 155/83 95 0 09/26/21 18:37 09/26/21 18:37 09/26/21 18:37 09/26/21 18:37 09/26/21 18:37 09/27/21 08:00 09/24/21 07:56 Period Temp Pulse Resp BP Sys/Caraballo Pulse Ox O2 Del Method O2 Flow Rate Last 24 Hr 96.6 F-98.1 F 81-95 14-14 137-163/80-83 93-95 Room Air-Room Air Intake and Output 09/26/21 09/27/21 09/27/21 21:59 05:59 13:59 Intake Total 120 300 120 Output Total 800 450 Balance -680 -150 120 Intake & Output: Intake & Output 09/26/21 09/27/21 09/27/21 21:59 05:59 13:59 Intake Total 120 300 120 Output Total 800 450 Balance -680 -150 120 Intake: Oral 120 300 120 Output: Urine Catheter Amount 800 450 Other: Meal Breakfast Percent of Meal Consumed 50% Feeding Ability Total Assistance Urine Appearance Sediment Sediment Sediment Uretheral ([place]) Sediment Sediment Urine Color Dark Barbara Dark Barbara Dark Yellow Uretheral ([place]) Dark Barbara Dark Yellow Urine Odor Normal Uretheral ([place]) Normal Head Head exam: Present atraumatic and normal inspection Eye Eye exam: Present normal appearance ENT ENT exam: Present mucous membranes moist, normal exam and normal external ear exam Neck Neck exam: Present normal inspection Respiratory Respiratory exam: Present normal respiratory exam Cardiovascular Cardiovascular exam: Present normal rate and rhythm GI/Abdominal GI/Abdominal exam: Present normal bowel sounds Back Exam Back exam: Present normal inspection Neurological Exam Neurological exam: Present alert Skin Skin exam: Present intact and warm OBJ DATA Labs CBC & Chem 7: 09/20/21 13:35 09/23/21 05:22 Meds: Medications Acetaminophen (Acetaminophen 325 Mg Tablet) 650 mg PO Q6HP PRN; Protocol PRN Reason: Per Pain Protocol/Fever > 101 Last Admin: 09/26/21 05:56 Dose: 650 mg Albuterol/Ipratropium (Ipratropium/Albuterol 3 Ml Ampul.Neb) 3 ml NEB Q4HP PRN PRN Reason: Shortness Of Breath Diphenhydramine HCl (Diphenhydramine 25 Mg Capsule) 25 mg PO Q4-6HP PRN PRN Reason: ANXIETY/SEDATION Last Admin: 09/26/21 23:24 Dose: 25 mg Docusate Sodium (Docusate Sodium 100 Mg Capsule) 100 mg PO BID [facility] Last Admin: 09/27/21 08:25 Dose: 100 mg Haloperidol (Haloperidol 5 Mg Tablet) 2.5 mg PO Q4HP PRN PRN Reason: ANXIETY/SEDATION Morphine Sulfate (Morphine 15 Mg Tablet) 15 mg PO Q4-6HP PRN; Protocol PRN Reason: Per Pain Protocol Ondansetron HCl (Ondansetron 4 Mg Odt Tablet) 4 mg SL Q4-6HP PRN PRN Reason: Nausea And Vomiting Polyethylene Glycol (Polyethylene Glycol 3350 17 Gm Packet) 17 gm PO DAILYP PRN PRN Reason: Constipation Last Admin: 09/26/21 21:22 Dose: 17 gm Quetiapine Fumarate (Quetiapine 100 Mg Tablet) 100 mg PO BID@0900,1500 [facility] Last Admin: 09/27/21 08:25 Dose: 100 mg Quetiapine Fumarate (Quetiapine 100 Mg Tablet) 200 mg PO HS [facility] Last Admin: 09/26/21 21:21 Dose: 200 mg Senna (Sennosides 1 Tablet) 2 tab PO DAILYP PRN PRN Reason: Constipation A/P Narrative A/P Narrative: A: *?TIA, Right facial droop: resolved -ABCD=4-5 -CTA head/neck unremarkable, unable to do MRI d/t pt compliance, f/u CT no cva noted *Advanced Dementia w/behavioral disturbance: *Hypokalemia: improved *HTN: elevated *Obesity: BMI 39 *DM: not on meds, A1c 6.9 *goals of care discussion with family/CM P: -09/27: medically status quo. Social work will try to contact today -09/26: Social work is working on LTC benefits -8/16: The patient will be transferred to med/surg, awaiting placement -09/24: The patient will be transition to comfort measures only. Any unnecessary medications will be discontinued. -asa/statin d/c -Delirium precautions -per telepsych consult > increase seroquel to 100qam 100afternoon, 200qhs -Monitor and replace electrolytes -d/c norvasc -CM for placement needs -ppx: Lovenox Time Spent With Patient Time: Total time spent is greater than 50% in coordination of care (as documented) at patient's floor/unit and/or counseling patient: Total time spent with greater than 50% in coordination of care (as documented) at patient's floor/unit and/or counseling patient:: 25 - 35 minutes QUALITY Stroke Onset of Symptoms Date: 09/20/21 Onset of Symptoms Time: 10:30 Symptom Onset Unknown: Yes VTE Deep Vein Thrombosis/Pulmonary Embolism Present on Admission: No
[2021-09-27] MEDS: ACETAMINOPHEN 325 MG TABLET PO PRN (16:20)
[2021-09-27] MEDS: diphenhydrAMINE 25 MG CAPSULE PO PRN (21:49)
[2021-09-28] MEDS: diphenhydrAMINE 25 MG CAPSULE PO PRN (02:02)
[2021-09-28] MEDS: DOCUSATE SODIUM 100 MG CAPSULE PO SCH (08:29)
[2021-09-28] MEDS: QUEtiapine 100 MG TABLET PO SCH ×2 (08:29→13:33)
--- NOTE | 2021-09-28 10:08 | Internal Med Progress Note ---
SUBJECTIVE Subjective Patient information: Note initiated : 09/28/21 at 10:05 am Service Date, if different from initiated Date: [] Patient: Kamla Will 66 y/o F admitted on 09/24/21 for stroke symptoms. Chief Complaint: [] Principal diagnosis: Suspected stroke Interval history: The patient was resting comfortably in bed. The was present at the bedside today to discuss disposition. I was able to speak with him at length. Constitutional Vitals: Vital Signs Temp Pulse Resp BP Pulse Ox O2 Del Method O2 Flow Rate 97.4 F 84 18 129/72 94 0 09/28/21 07:05 09/28/21 07:05 09/28/21 07:05 09/27/21 19:05 09/28/21 07:05 09/27/21 19:05 09/24/21 07:56 Period Temp Pulse Resp BP Sys/Caraballo Pulse Ox O2 Del Method O2 Flow Rate Last 24 Hr 97.2 F-97.9 F 77-94 14-18 129-137/72-77 94-95 Room Air-Room Air Intake and Output 09/27/21 09/28/21 09/28/21 21:59 05:59 13:59 Intake Total 120 50 Output Total 375 750 Balance -255 -700 Intake & Output: Intake & Output 09/27/21 09/28/21 09/28/21 21:59 05:59 13:59 Intake Total 120 50 Output Total 375 750 Balance -255 -700 Intake: Oral 120 50 Output: Urine Catheter Amount 375 750 Other: Meal Dinner Percent of Meal Consumed 75% Feeding Ability Total Assistance Urine Appearance Clear Cloudy Uretheral ([place]) Clear Urine Color Yellow Light Barbara Uretheral ([place]) Yellow Urine Odor Normal Head Head exam: Present atraumatic and normal inspection Eye Eye exam: Present normal appearance ENT ENT exam: Present mucous membranes moist, normal exam and normal external ear exam Neck Neck exam: Present normal inspection Respiratory Respiratory exam: Present normal respiratory exam Cardiovascular Cardiovascular exam: Present normal rate and rhythm GI/Abdominal GI/Abdominal exam: Present normal bowel sounds Back Exam Back exam: Present normal inspection Neurological Exam Neurological exam: Present alert and altered; Absent oriented X3 Psychiatric Psychiatric exam: Present normal affect; Absent agitated or anxious Skin Skin exam: Present intact and warm OBJ DATA Labs CBC & Chem 7: 09/20/21 13:35 09/23/21 05:22 Meds: Medications Acetaminophen (Acetaminophen 325 Mg Tablet) 650 mg PO Q6HP PRN; Protocol PRN Reason: Per Pain Protocol/Fever > 101 Last Admin: 09/27/21 16:20 Dose: 650 mg Albuterol/Ipratropium (Ipratropium/Albuterol 3 Ml Ampul.Neb) 3 ml NEB Q4HP PRN PRN Reason: Shortness Of Breath Diphenhydramine HCl (Diphenhydramine 25 Mg Capsule) 25 mg PO Q4-6HP PRN PRN Reason: ANXIETY/SEDATION Last Admin: 09/28/21 02:02 Dose: 25 mg Docusate Sodium (Docusate Sodium 100 Mg Capsule) 100 mg PO BID [facility] Last Admin: 09/28/21 08:29 Dose: 100 mg Haloperidol (Haloperidol 5 Mg Tablet) 2.5 mg PO Q4HP PRN PRN Reason: ANXIETY/SEDATION Morphine Sulfate (Morphine 15 Mg Tablet) 15 mg PO Q4-6HP PRN; Protocol PRN Reason: Per Pain Protocol Ondansetron HCl (Ondansetron 4 Mg Odt Tablet) 4 mg SL Q4-6HP PRN PRN Reason: Nausea And Vomiting Polyethylene Glycol (Polyethylene Glycol 3350 17 Gm Packet) 17 gm PO DAILYP PRN PRN Reason: Constipation Last Admin: 09/26/21 21:22 Dose: 17 gm Quetiapine Fumarate (Quetiapine 100 Mg Tablet) 100 mg PO BID@0900,1500 [facility] Last Admin: 09/28/21 08:29 Dose: 100 mg Quetiapine Fumarate (Quetiapine 100 Mg Tablet) 200 mg PO HS [facility] Last Admin: 09/27/21 21:49 Dose: 200 mg Senna (Sennosides 1 Tablet) 2 tab PO DAILYP PRN PRN Reason: Constipation Last Admin: 09/27/21 21:49 Dose: 2 tab A/P Narrative A/P Narrative: A: *?TIA, Right facial droop: resolved -ABCD=4-5 -CTA head/neck unremarkable, unable to do MRI d/t pt compliance, f/u CT no cva noted *Advanced Dementia w/behavioral disturbance: *Hypokalemia: improved *HTN: elevated *Obesity: BMI 39 *DM: not on meds, A1c 6.9 *goals of care discussion with family/CM P: -8/19: The patient remains medically status quo. -09/27: medically status quo. Social work will try to contact today -09/26: Social work is working on LTC benefits -09/25: The patient will be transferred to med/surg, awaiting placement -09/24: The patient will be transition to comfort measures only. Any unnecessary medications will be discontinued. -asa/statin d/c -Delirium precautions -per telepsych consult > increase seroquel to 100qam 100afternoon, 200qhs -Monitor and replace electrolytes -d/c norvasc -CM for placement needs -ppx: Lovenox Time Spent With Patient Time: Total time spent is greater than 50% in coordination of care (as documented) at patient's floor/unit and/or counseling patient: Total time spent with greater than 50% in coordination of care (as documented) at patient's floor/unit and/or counseling patient:: 25 - 35 minutes QUALITY Stroke Onset of Symptoms Date: 09/20/21 Onset of Symptoms Time: 10:30 Symptom Onset Unknown: Yes VTE Deep Vein Thrombosis/Pulmonary Embolism Present on Admission: No
--- NOTE | 2021-09-28 12:15 | Discharge Summary ---
Discharge Provider Provider IMPORTANT FOLLOW-UP INFORMATION FOR PCP: Patient information: Note initiated : 09/28/21 at 12:15 pm Service Date, if different from initiated Date: [] Patient: Kamla Will 66 y/o F admitted on 09/24/21 for stroke symptoms. Chief Complaint: [] Date of admission: 09/24/21 11:25 Discharge date: 09/28/21 Primary care physician: Ulysses Ray PA-C Consults: 09/20/21 Consult to Physician [CONS] Stat Comment: Consulting Provider: [employer] Reason For Exam: Physician to Consult 09/21/21 09:51 Consult to Physician [CONS] Routine Comment: confusion w/hallucinations, ?schizophrenia Consulting Provider: [facility] Reason For Exam: Physician to Consult COURSE Hospital Course Hospital course: A: *?TIA, Right facial droop: resolved -ABCD=4-5 -CTA head/neck unremarkable, unable to do MRI d/t pt compliance, f/u CT no cva noted *Advanced Dementia w/behavioral disturbance: *Hypokalemia: improved *HTN: elevated *Obesity: BMI 39 *DM: not on meds, A1c 6.9 *goals of care discussion with family/CM P: -09/28: The patient remains medically status quo. -09/27: medically status quo. Social work will try to contact today -09/26: Social work is working on LTC benefits -09/25: The patient will be transferred to med/surg, awaiting placement -09/24: The patient will be transition to comfort measures only. Any unnecessary medications will be discontinued. -asa/statin d/c -Delirium precautions -per telepsych consult > increase seroquel to 100qam 100afternoon, 200qhs -Monitor and replace electrolytes -d/c norvasc -CM for placement needs -ppx: Lovenox The patient will be discharged to fdc facility and will likely require long-term care. She would benefit from ongoing hospice/palliative care follow-up. Discharge diagnosis: Suspected TIA, failure to thrive, advanced dementia Time Spent with Patient Time attestation: Total time spent providing and/or coordinating discharge services: Time spent: Greater than 30 minutes EXAM Constitutional Vitals: Temp Pulse Resp BP Pulse Ox O2 Del Method O2 Flow Rate 98.4 F 93 H 22 146/98 90 0 09/28/21 11:57 09/28/21 11:57 09/28/21 11:57 09/28/21 11:57 09/28/21 11:57 09/27/21 19:05 09/24/21 07:56 General appearance: average body habitus Head Head exam: Present atraumatic, normal inspection and normocephalic Eye Eye exam: Present EOMI, normal appearance and PERRL; Absent conjunctival injection ENT ENT exam: Present normal exam; Absent mucous membranes dry Neck Neck exam: Present full ROM; Absent lymphadenopathy Respiratory Respiratory exam: Present normal respiratory exam and CTAB; Absent decreased breath sounds, respiratory distress or wheezes Cardiovascular Cardiovascular exam: Present normal rate and rhythm and RRR; Absent JVD GI/Abdominal GI/Abdominal exam: Present normal bowel sounds and soft; Absent diminished bowel sounds, distended, guarding, mass, rebound or tenderness Neurological Exam Neurological exam: Present alert Psychiatric Psychiatric exam: Present normal affect and normal mood Skin Skin exam: Present intact and warm; Absent erythema, pallor, petechiae or rash Discharge Plan Patient/Caregiver Discharge Instructions Activity: as per physical therapy Diet: Regular Diet Prescriptions: New quetiapine 100 mg Tablet 100 mg PO BID@0900,1500 30 Days Qty: 30 0RF quetiapine 100 mg Tablet 200 mg PO HS 30 Days Qty: 60 0RF Discontinued quetiapine 50 mg tablet 100 mg PO BID 30 Days Qty: 120 5RF Follow Up Plan Follow up with: Ulysses Ray PA-C [Primary Care Provider] - Patient Disposition: Xfer SNF Health Concerns: 1. Ongoing discussions about hospice Prognosis: Fair Rehab Potential: Fair I certify that the patient requires SNF services: Yes Overall status at discharge: patient is progressing back to baseline Discharge Orders: Discharge Order (Routine); Ordered 09/28/21 Ordered By: E[employer]isto[employer]ordable Renovationsha[employer]aker VTE Deep Vein Thrombosis/Pulmonary Embolism Present on Admission: No
== END 2021-09-28 15:00 | DRG 69 ==
LOC: ICU 13:23 → ED 13:23 → ICU 17:00 → MEDSUR 09-25 13:45
PROVIDERS: ADMIT Internal Medicine; ATTEND Internal Medicine